=== PATIENT | female | born 1995 | race Caucasian/White ===

== ENCOUNTER 2017-11-10 11:02 | Inpatient (IN) | payer BC ==
[2017-11-10] MEDS ORDERED: SODIUM CHLORIDE 0.9% 1,000 ML IV ONE (12:05)
[2017-11-10] MEDS ORDERED: KETOROLAC 30 MG/ML 1 ML VIAL IVP STA (12:05)
[2017-11-10 12:10] LABS: Appearance,Urine Cloudy (Clear); Bacteria,Urine Occasional /hpf; Bilirubin,Urine Negative (Negative); Blood,Urine Small (Negative); Color,Urine Yellow; Glucose,Urine (UA) Negative (Negative); Ketones,Urine Negative (Negative); Leukocyte Esterase,Urine Small (Negative); Mucus,Urine Moderate /hpf; Nitrite,Urine Negative (Negative); PH, Urine 5.5 (5.0-8.0); Protein,Urine Negative (Negative); RBC,Urine 2 /hpf (0-5); Specific Gravity,Urine 1.019 (1.001-1.035); Squamous Epithelial Cell,Urine 12 /hpf (0-4); Urobilinogen,Urine <2.0 mg/dL (<2.0); WBC,Urine 6 /hpf (0-5)
--- NOTE | 2017-11-10 12:20 | ED ---
Extremity Problem HPI - General Chief complaint: Extremity Problem,Nontraumatic Stated complaint: Possible blood clot Time Seen by Provider: 11/10/17 11:30 Source: patient Mode of arrival: wheelchair Limitations: no limitations - History of Present Illness Initial comments: 22-year-old female patient presented to the emergency department today with complaints of bilateral calf pain. Patient states that pain started yesterday morning. She states that the pain is so severe that she is unable to ambulate without walking on her tiptoes. She states that her calves feel swollen and tight. She states that she did work out on Sunday at the gym however states that she is usually quite active with dance and yoga and did not do anything unusual. She denies any fever or chills with this. She states she has been taking Tylenol without relief. States that she did try to stretch yesterday however did not help. She states both calves hurt equally. She denies any history of similar symptoms. She does report that she did start a new control couple of months ago and did have a 30 pound weight gain. Patient denies any recent rash, shortness breath, chest pain, abdominal pain, nausea, vomiting, diarrhea, constipation, back pain, numbness, tingling, dizziness, weakness, hematuria, dysuria, urinary urgency, urinary frequency, headache, visual changes, or any other complaints. - Related Data Home Medications Medication Instructions Recorded Confirmed Enskyce 1 tab PO DAILY 11/10/17 11/10/17 Allergies Allergy/AdvReac Type Severity Reaction Status Date / Time ibuprofen AdvReac Nausea & Verified 11/10/17 16:28 Vomiting & Diarrhea Review of Systems ROS Statement: Those systems with pertinent positive or pertinent negative responses have been documented in the HPI. ROS Other: All systems not noted in ROS Statement are negative. Past Medical History Past Medical History: No Reported History History of Any Multi-Drug Resistant Organisms: None Reported Past Surgical History: Orthopedic Surgery Additional Past Surgical History / Comment(s): oral surgery Past Psychological History: No Psychological Hx Reported Smoking Status: Never smoker Past Alcohol Use History: None Reported Past Drug Use History: None Reported - Past Family History Father Family Medical History: Diabetes Mellitus Brother(s) Family Medical History: Diabetes Mellitus General Exam Limitations: no limitations General appearance: alert, in no apparent distress, other (This is a well- developed, well-nourished adult female patient in no acute distress. Vital signs upon presentation are temperature 98.1F, pulse 78, respirations 20, blood pressure 138/82, pulse ox 99% on room air.) Eye exam: Present: normal appearance, PERRL, EOMI. Absent: scleral icterus, conjunctival injection, periorbital swelling ENT exam: Present: normal exam, normal oropharynx, mucous membranes moist Respiratory exam: Present: normal lung sounds bilaterally. Absent: respiratory distress, wheezes, rales, rhonchi, stridor Cardiovascular Exam: Present: regular rate, normal rhythm, normal heart sounds. Absent: systolic murmur, diastolic murmur, rubs, gallop, clicks GI/Abdominal exam: Present: soft, normal bowel sounds. Absent: distended, tenderness, guarding, rebound, rigid Extremities exam: Present: normal inspection, full ROM, normal capillary refill , calf tenderness (Bilateral), other (No erythema, warmth, or lesion. Pedal and posttibial pulses are 2+ and equal bilaterally.). Absent: tenderness, pedal edema, joint swelling Neurological exam: Present: alert, oriented X3, CN II-XII intact Psychiatric exam: Present: normal affect, normal mood Skin exam: Present: warm, dry, intact, normal color. Absent: rash Course Vital Signs 11/10/17 11/10/17 11/10/17 11:17 14:31 16:08 Temperature 98.1 F Pulse Rate 78 76 86 Respiratory 20 18 18 Rate Blood Pressure 138/82 131/71 122/73 O2 Sat by Pulse 99 100 97 Oximetry 11/10/17 16:11 Temperature 98 F Pulse Rate Respiratory Rate Blood Pressure O2 Sat by Pulse Oximetry Medical Decision Making - Lab Data Result diagrams: 11/10/17 12:14 11/10/17 12:14 Lab Results 11/10/17 11/10/17 11/10/17 Range/Units 11:52 11:52 12:14 WBC 7.8 (3.8-10.6) k/uL RBC 4.77 (3.80-5.40) m/uL Hgb 13.2 (11.4-16.0) gm/dL Hct 40.7 (34.0-46.0) % MCV 85.3 (80.0-100.0) fL MCH 27.6 (25.0-35.0) pg MCHC 32.4 (31.0-37.0) g/dL RDW 13.1 (11.5-15.5) % Plt Count 245 (150-450) k/uL Neutrophils % 65 % Lymphocytes % 28 % Monocytes % 4 % Eosinophils % 2 % Basophils % 0 % Neutrophils # 5.0 (1.3-7.7) k/uL Lymphocytes # 2.1 (1.0-4.8) k/uL Monocytes # 0.3 (0-1.0) k/uL Eosinophils # 0.1 (0-0.7) k/uL Basophils # 0.0 (0-0.2) k/uL Sodium (137-145) mmol/L Potassium (3.5-5.1) mmol/L Chloride (98-107) mmol/L Carbon Dioxide (22-30) mmol/L Anion Gap mmol/L BUN (7-17) mg/dL Creatinine (0.52-1.04) mg/dL Est GFR (MDRD) Af Amer (>60 ml/min/1.73 sqM) Est GFR (MDRD) Non-Af (>60 ml/min/1.73 sqM) Glucose (74-99) mg/dL Calcium (8.4-10.2) mg/dL Total Bilirubin (0.2-1.3) mg/dL AST (14-36) U/L ALT (9-52) U/L Alkaline Phosphatase (38-126) U/L Creatine Kinase (30-135) U/L Total Protein (6.3-8.2) g/dL Albumin (3.5-5.0) g/dL Urine Color Yellow Urine Appearance Cloudy H (Clear) Urine pH 5.5 (5.0-8.0) Ur Specific [place] 1.019 (1.001-1.035) Urine Protein Negative (Negative) Urine Glucose (UA) Negative (Negative) Urine Ketones Negative (Negative) Urine Blood Small H (Negative) Urine Nitrite Negative (Negative) Urine Bilirubin Negative (Negative) Urine Urobilinogen <2.0 (<2.0) mg/dL Ur Leukocyte Esterase Small H (Negative) Urine RBC 2 (0-5) /hpf Urine WBC 6 H (0-5) /hpf Ur Squamous Epith Cells 12 H (0-4) /hpf Urine Bacteria Occasional H (None) /hpf Urine Mucus Moderate H (None) /hpf Urine Opiates Screen Not Detected (NotDetected) Ur Oxycodone Screen Not Detected (NotDetected) Urine Methadone Screen Not Detected (NotDetected) Ur Propoxyphene Screen Not Detected (NotDetected) Ur Barbiturates Screen Not Detected (NotDetected) U Tricyclic Antidepress Not Detected (NotDetected) Ur Phencyclidine Scrn Not Detected (NotDetected) Ur Amphetamines Screen Not Detected (NotDetected) U Methamphetamines Scrn Not Detected (NotDetected) U Benzodiazepines Scrn Not Detected (NotDetected) Urine Cocaine Screen Not Detected (NotDetected) U Marijuana (THC) Screen Not Detected (NotDetected) 11/10/17 Range/Units 12:14 WBC (3.8-10.6) k/uL RBC (3.80-5.40) m/uL Hgb (11.4-16.0) gm/dL Hct (34.0-46.0) % MCV (80.0-100.0) fL MCH (25.0-35.0) pg MCHC (31.0-37.0) g/dL RDW (11.5-15.5) % Plt Count (150-450) k/uL Neutrophils % % Lymphocytes % % Monocytes % % Eosinophils % % Basophils % % Neutrophils # (1.3-7.7) k/uL Lymphocytes # (1.0-4.8) k/uL Monocytes # (0-1.0) k/uL Eosinophils # (0-0.7) k/uL Basophils # (0-0.2) k/uL Sodium 144 (137-145) mmol/L Potassium 4.5 (3.5-5.1) mmol/L Chloride 109 H (98-107) mmol/L Carbon Dioxide 22 (22-30) mmol/L Anion Gap 13 mmol/L BUN 12 (7-17) mg/dL Creatinine 0.80 (0.52-1.04) mg/dL Est GFR (MDRD) Af Amer >60 (>60 ml/min/1.73 sqM) Est GFR (MDRD) Non-Af >60 (>60 ml/min/1.73 sqM) Glucose 75 (74-99) mg/dL Calcium 9.7 (8.4-10.2) mg/dL Total Bilirubin 0.7 (0.2-1.3) mg/dL AST 201 H (14-36) U/L ALT 63 H (9-52) U/L Alkaline Phosphatase 87 (38-126) U/L Creatine Kinase 34091 H (30-135) U/L Total Protein 7.9 (6.3-8.2) g/dL Albumin 4.4 (3.5-5.0) g/dL Urine Color Urine Appearance (Clear) Urine pH (5.0-8.0) Ur Specific [place] (1.001-1.035) Urine Protein (Negative) Urine Glucose (UA) (Negative) Urine Ketones (Negative) Urine Blood (Negative) Urine Nitrite (Negative) Urine Bilirubin (Negative) Urine Urobilinogen (<2.0) mg/dL Ur Leukocyte Esterase (Negative) Urine RBC (0-5) /hpf Urine WBC (0-5) /hpf Ur Squamous Epith Cells (0-4) /hpf Urine Bacteria (None) /hpf Urine Mucus (None) /hpf Urine Opiates Screen (NotDetected) Ur Oxycodone Screen (NotDetected) Urine Methadone Screen (NotDetected) Ur Propoxyphene Screen (NotDetected) Ur Barbiturates Screen (NotDetected) U Tricyclic Antidepress (NotDetected) Ur Phencyclidine Scrn (NotDetected) Ur Amphetamines Screen (NotDetected) U Methamphetamines Scrn (NotDetected) U Benzodiazepines Scrn (NotDetected) Urine Cocaine Screen (NotDetected) U Marijuana (THC) Screen (NotDetected) - Radiology Data Radiology results: report reviewed, image reviewed 22-year-old female patient percents to the emergency department today with complaints of bilateral calf pain and tenderness. Physical examination did reveal some mild swelling to the bilateral calves with tenderness of both areas. Labs reviewed and did reveal a creatine kinase of 10,103. AST was elevated at 201 and ALT was elevated at 63. Drug screen was negative. Patient will be admitted for rhabdomyolysis. She was started on D5 the tub U with 3 A of bicarbonate at 200 per hour. Patient was informed of all results and agrees with this plan. Disposition Clinical Impression: Rhabdomyolysis Disposition: ADMITTED IP TO THIS [facility] Condition: Serious Decision to Admit Reason: Admit from EC Decision Date: 11/10/17 Decision Time: 15:24
[2017-11-10 12:26] LABS: Basophils % (A) 0 %; Eosinophils # (A) 0.1 k/uL (0-0.7); Eosinophils % (A) 2 %; HCT 40.7 % (34.0-46.0); HGB 13.2 gm/dL (11.4-16.0); Lymphocytes # (A) 2.1 k/uL (1.0-4.8); Lymphocytes % (A) 28 %; MCH 27.6 pg (25.0-35.0); MCHC 32.4 g/dL (31.0-37.0); MCV 85.3 fL (80.0-100.0); Mean Platelet Volume 6.9; Monocytes # (A) 0.3 k/uL (0-1.0); Monocytes % (A) 4 %; Neutrophils % (A) 65 %; Platelet Count 245 k/uL (150-450); RBC 4.77 m/uL (3.80-5.40); RDW 13.1 % (11.5-15.5); WBC 7.8 k/uL (3.8-10.6)
[2017-11-10 12:39] LABS: ALT 63 U/L (9-52); AST 201 U/L (14-36); Albumin 4.4 g/dL (3.5-5.0); Alkaline Phosphatase 87 U/L (38-126); Anion Gap 13 mmol/L; Blood Urea Nitrogen 12 mg/dL (7-17); Calcium 9.7 mg/dL (8.4-10.2); Carbon Dioxide 22 mmol/L (22-30); Chloride 109 mmol/L (98-107); Glucose 75 mg/dL (74-99); Potassium 4.5 mmol/L (3.5-5.1); Sodium 144 mmol/L (137-145); Total Bilirubin 0.7 mg/dL (0.2-1.3); Total Protein 7.9 g/dL (6.3-8.2)
[2017-11-10 13:02] LABS: Creatine Kinase 10103 U/L (30-135)
[2017-11-10] MEDS ORDERED: DEXTROSE 5% IN WATER 1,000 ML with SODIUM BICARB (1 MEQ/ML) 150 ML IV ONE (13:42)
[2017-11-10 14:06] LABS: Amphetamine Screen,Urine Not Detected (NotDetected); Barbiturate Screen,Urine Not Detected (NotDetected); Benzodiazepines Screen,Urine Not Detected (NotDetected); Cocaine Screen,Urine Not Detected (NotDetected); Methadone Screen, Urine Not Detected (NotDetected); Opiate Screen,Urine Not Detected (NotDetected); Oxycodone Screen, Urine Not Detected (NotDetected); Phencyclidine Screen,Urine Not Detected (NotDetected); Tricyclic Antidepressant,Urine Not Detected (NotDetected); Urn Cannabinoid Scrn Not Detected (NotDetected)
[2017-11-10] MEDS ORDERED: HYDROmorphone 0.5 MG/0.5 ML SYRINGE IVP PRN (15:21)
[2017-11-10] MEDS ORDERED: NALOXONE 0.4 MG/ML 1 ML VIAL IV PRN (15:21)
[2017-11-10] MEDS ORDERED: ONDANSETRON 4 MG/2 ML VIAL IVP PRN (15:21)
[2017-11-10 16:40] VITALS: BMI 33.4
[2017-11-10] MEDS: SODIUM CHLORIDE 0.9% 1,000 ML IV SCH (21:09)
--- NOTE | 2017-11-10 21:27 | P.HPIM ---
History of Present Illness H&P Date: 11/10/17 Chief Complaint: Bilateral lower extremity pain HISTORY OF PRESENT ILLNESS: 21-year-old female patient of Dr. Negro Hoffman with no medical chronic medical conditions presented to the emergency department with complaints of bilateral calf pain. Pain began yesterday morning and it so severe that she is unable to ambulate without walking on her tiptoes her calves and feet are swollen and tight. Patient worked out last on Sunday at the gym, has a very active lifestyle with dancing yoga states she did not do anything unusual. Has taken Tylenol with no relief. Attempted to stretch and this did not help. Patient has had a 30 pound weight gain due to a new control pill which was started a couple months ago. REVIEW OF SYSTEMS GEN.: [ Mildly anxious, 30 pound weight gain in the last 2 months] EYES: [None] HEENT: [None] NECK: [None] RESPIRATORY: [None] CARDIOVASCULAR: [None] GASTROINTESTINAL: [None] GENITOURINARY: [None] MUSCULOSKELETAL: [Bilateral lower extremity pain] LYMPHATICS: [None] HEMATOLOGICAL: [None] PSYCHIATRY: [None] NEUROLOGICAL: [None] PAST MEDICAL HISTORY Past medical history: Irritable bowel Past surgical history: Orthopedic surgery, oral surgery Past psychological history: SOCIAL HISTORY: Additional psychological/social history: None Smoking use history: Never Alcohol use history: Denies Drug use history: Denies Marital status: Single Living situation: Lives with [facility] 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 BMI noted] GENERAL: [Average built, sitting up, comfortable]. EYES: [Pupils equal. Conjunctiva kalina]l. HEENT: [External appearance of nose and ears normal, oral cavity grossly normal] . NECK: [JVD not raised; masses not palpable]. HEART: [First and second heart sounds are normal; no edema]. LUNGS:[ Respiratory rate normal; clear to auscultation]. ABDOMEN: [Soft, nontender, liver spleen not palpable, no masses palpable]. LYMPHATICS: [No lymph nodes palpable in the axilla and neck]. PSYCH: [Alert and oriented x3; mood and affect kalina]l. NEUROLOGICAL: [Cranial nerves grossly intact; no facial asymmetry, power and sensation grossly intact]. MUSCULOSKELETAL: Bilateral swelling to calf and feet tender to palpation. INVESTIGATIONS: LABS: AST 201, ALTs 63, creatinine kinase 10,103 ASSESSMENT: -Rhabdomyolysis likely induced by exercise, in a patient who is engaged in regular routine physical activity -Obesity body mass index 33.5 PLAN: Home medications reordered, IV fluids initiated, serial labs continue monitoring CPK. Plan of care discussed at the bedside with the patient and mom , they are in agreement we will follow closely. CUTLERY GRINDER STATEMENT: Patient was seen and examined by nurse practitioner Cherri Humphries and all elements of the case were discussed with attending Dr. Garcia. Past Medical History Past Medical History: No Reported History Additional Past Medical History / Comment(s): IRRITABLE BOWEL DISEASE History of Any Multi-Drug Resistant Organisms: None Reported Past Surgical History: Orthopedic Surgery Additional Past Surgical History / Comment(s): oral surgery Past Anesthesia/Blood Transfusion Reactions: No Reported Reaction Past Psychological History: No Psychological Hx Reported Smoking Status: Never smoker Past Alcohol Use History: None Reported Past Drug Use History: None Reported - Past Family History Father Family Medical History: Diabetes Mellitus Brother(s) Family Medical History: Diabetes Mellitus Medications and Allergies Home Medications Medication Instructions Recorded Confirmed Type Enskyce 1 tab PO DAILY 11/10/17 11/10/17 History Allergies Allergy/AdvReac Type Severity Reaction Status Date / Time ibuprofen AdvReac Nausea & Verified 11/10/17 16:28 Vomiting & Diarrhea Physical Exam Vitals: Vital Signs Temp Pulse Pulse Resp BP BP Pulse Ox 11/10/17 16:30 97.7 F 77 20 139/87 100 11/10/17 16:11 98 F 11/10/17 16:08 86 18 122/73 97 11/10/17 14:31 76 18 131/71 100 11/10/17 11:17 98.1 F 78 20 138/82 99 Intake and Output 11/10/17 11/10/17 11/10/17 06:59 14:59 22:59 Output Total 250 Balance -250 Output: Urine 250 Other: Voiding Method Toilet Weight 99.79 kg 99.79 kg Patient Weight 11/11/17 06:59 Weight 99.79 kg Results CBC & Chem 7: 11/10/17 12:14 11/10/17 12:14 Labs: Abnormal Lab Results - Last 24 Hours (Table) 11/10/17 11/10/17 Range/Units 11:52 12:14 Chloride 109 H (98-107) mmol/L AST 201 H (14-36) U/L ALT 63 H (9-52) U/L Creatine Kinase 33002 H (30-135) U/L Urine Appearance Cloudy H (Clear) Urine Blood Small H (Negative) Ur Leukocyte Esterase Small H (Negative) Urine WBC 6 H (0-5) /hpf Ur Squamous Epith Cells 12 H (0-4) /hpf Urine Bacteria Occasional H (None) /hpf Urine Mucus Moderate H (None) /hpf Thrombosis Risk Factor Assmnt - Choose All That Apply Any of the Below Risk Factors Present?: Yes Each Factor Represents 1 point: Obesity (BMI >25), Oral contraceptives or hormone replacement therapy Thrombosis Risk Factor Assessment Total Risk Factor Score: 2 Thrombosis Risk Factor Assessment Level: Low Risk
[2017-11-11] MEDS: SODIUM CHLORIDE 0.9% 1,000 ML IV SCH ×2 (01:57→06:49)
[2017-11-11 09:31] LABS: ALT 73 U/L (9-52); AST 241 U/L (14-36); Albumin 3.4 g/dL (3.5-5.0); Alkaline Phosphatase 69 U/L (38-126); Anion Gap 9 mmol/L; Blood Urea Nitrogen 8 mg/dL (7-17); Calcium 8.7 mg/dL (8.4-10.2); Carbon Dioxide 24 mmol/L (22-30); Chloride 111 mmol/L (98-107); Glucose 109 mg/dL (74-99); Potassium 3.9 mmol/L (3.5-5.1); Sodium 144 mmol/L (137-145); Total Bilirubin 0.3 mg/dL (0.2-1.3); Total Protein 6.3 g/dL (6.3-8.2)
[2017-11-11] MEDS: SODIUM BICARBONATE TAB 650 MG TAB PO SCH ×2 (13:49→19:26)
[2017-11-11] MEDS: LACTATED RINGERS 1,000 ML IV SCH ×3 (16:21→21:42)
--- NOTE | 2017-11-11 18:50 | P.PN ---
Progress Note - Text Progress Note Date: 11/11/17 DATE OF SERVICE: 11/11/2017: PRESENTING COMPLAINT: Bilateral lower extremity pain HISTORY OF PRESENT ILLNESS: 21-year-old female who presented with bilateral lower extremity calf pain that was so severe she was unable to ambulate without walking on her tiptoes and calves and feet are swollen tight. Diagnostics revealed CK over 10,000, patient admitted for rhabdomyolysis. INTERVAL HISTORY: 11/11/2017: Sitting up in the bed, appears reasonably comfortable. Continues to complain of bilateral lower extremity calf pain. States pain is present however feels and seems somewhat better. CK is elevated greater than 12,000. Liver function tests also elevated. IV fluids, serial labs continue. Tolerating her diet, ambulatory to and from the bathroom. Last BM prior to admission. REVIEW OF SYSTEMS: Done for constitutional ,cardiovascular, GI, pulmonary with relevant findings as above. CURRENT MEDICATIONS: Dilaudid, lactated Ringer's, Zofran, sodium bicarbonate tablets. PHYSICAL EXAM VITAL SIGNS: Temperature 98.3, pulse 81, respiratory rate 18, blood pressure 127/75, oxygen saturation 97% on room air. GENERAL APPEARANCE: Lying in bed, not in distress. HEENT: Normocephalic, Pupils equal. Conjunctiva normal. JVD not raised. Mass not palpable.: RESPIRATORY: Respiratory effort normal. Lungs clear to auscultation. CARDIOVASCULAR: First and second sounds normal. No edema. ABDOMEN: Soft. Liver and spleen not palpable. No tenderness. No mass palpable. PSYCHIATRY: Alert and oriented x3. Mood and affect normal. MUSCULOSKELETAL: Bilateral swelling to calves and feet, tenderness to palpation , compartments are soft INVESTIGATIONS: Chloride 111, AST 241, ALTs 73, CK 12,713 ASSESSMENT: -Rhabdomyolysis likely induced by exercise, in a patient who is engaged in regular routine physical activity, worsening -Elevated liver enzymes in a patient with rhabdomyolysis, worsening -Obesity body mass index 33.5 PLAN: Continue aggressive IV fluid resuscitation, serial labs, sodium bicarbonate tablets. Plan of care discussed at the bedside with patient and mother they're agreeable. We will continue to follow closely. GANG PUSHER statement: Patient was seen and examined by nurse practitioner Cherri Humphries and all elements of the case discussed with attending Dr. Garcia
[2017-11-11] MEDS ORDERED: NAPROXEN 250 MG TAB PO PRN (19:41)
--- NOTE | 2017-11-11 20:28 | PN ---
PROGRESS NOTE DATE OF SERVICE: 11/11/17. ATTENDING NOTE: Patient seen and examined by me. I discussed with nurse practitioner Yandel. The patient admitted with acute rhabdomyolysis on IV LR. Still having some calf pain. Patient did try to walk a bit yesterday. The mother at the bedside. PHYSICAL EXAMINATION: On examination, afebrile, pulse 81, respiratory 18, blood pressure 127/75, pulse ox 97% on room air. Lungs are clear. Cardiovascular 1st and 2nd sounds normal. Some tenderness in both the calves. INVESTIGATIONS: White count 3.9, AST 241, ALT 73, CPK 12,713. ASSESSMENT: 1. Acute rhabdomyolysis, due to physical activity worsening. 2. Elevated liver enzymes could be from fatty liver, could be from side effect of control pill. PLAN: I had a lengthy talk with the patient and the mother. Probably the CPK is lagging behind. We will continue the patient at 200 mL of LR. Sodium bicarb tabs will be continued. Given the increased liver enzymes, we will do a liver ultrasound and get a Gastroenterology opinion. Told the patient to restrict her activity a little bit given that may diffuse more breakdown of muscles. Also we will order a bilateral lower extremity Doppler ultrasound to rule out DVT. MMODL / IJN: [id number] /
--- NOTE | 2017-11-11 21:10 | HP ---
HISTORY AND PHYSICAL DATE OF ADMISSION: 11/10/17 DATE OF SERVICE: 11/10/17 ATTENDING NOTE: Patient seen and examined by me yesterday on 11/10/17. Discussed with nurse practitioner, Ms. Humphries. The patient presented with bilateral calf pain. The patient does regular yoga and also teaches dance. Nothing unusual she can remember except maybe she had decreased fluid intake. She had pain in both the calves, presented to the ER. CPK was found to be greatly elevated. PHYSICAL EXAMINATION: On exam, lungs are clear. Cardiovascular 1st and 2nd sounds normal. The patient is rather comfortable. Some bilateral calf tenderness. Patient muscles well-developed. Mother says she has always been very active. INVESTIGATIONS: Potassium 4.5. CPK was 10,103. ASSESSMENT: Acute rhabdomyolysis from increased muscular activity. Patient has good muscle mass. The patient denies any recreational drugs, alcohol, stroke or too much for cold exposure. The patient will be started on IV fluids 200 mL an hour. We will also give some bicarbonate. Care was discussed at length with the mother at the bedside. The patient does take control pills over 2 months, but also been taking a control pill. Copy to Dr. Hoffman. RONIL / KEVINN: [id number] /
[2017-11-11] MEDS: ENOXAPARIN 40 MG/0.4 ML SYRINGE SQ SCH (21:24)
[2017-11-12] MEDS: SODIUM BICARBONATE TAB 650 MG TAB PO SCH ×5 (02:18→21:04)
[2017-11-12] MEDS: LACTATED RINGERS 1,000 ML IV SCH ×8 (02:18→21:05)
[2017-11-12 06:46] LABS: ALT 89 U/L (9-52); AST 271 U/L (14-36); Albumin 3.3 g/dL (3.5-5.0); Alkaline Phosphatase 62 U/L (38-126); Anion Gap 7 mmol/L; Blood Urea Nitrogen 7 mg/dL (7-17); Calcium 9.2 mg/dL (8.4-10.2); Carbon Dioxide 27 mmol/L (22-30); Chloride 107 mmol/L (98-107); Glucose 87 mg/dL (74-99); Potassium 4.3 mmol/L (3.5-5.1); Sodium 141 mmol/L (137-145); Total Bilirubin 0.4 mg/dL (0.2-1.3); Total Protein 6.1 g/dL (6.3-8.2)
--- NOTE | 2017-11-12 09:20 | US ---
EXAMINATION TYPE: US abdomen limited DATE OF EXAM: 11/12/2017 COMPARISON: NONE CLINICAL HISTORY: elevated liver enzymes. Dancer, calf pain, no symptoms EXAM MEASUREMENTS: Liver Length: 18.7 cm Gallbladder Wall: 0.1 cm CBD: 0.6 cm Right Kidney: 11.6 x 4.0 x 4.8 cm Pancreas: limited views due to bowel gas Liver: slightly enlarged, limited views appear wnl Gallbladder: wnl Evidence for sonographic Malave's sign: no CBD: wnl Right Kidney: wnl IMPRESSION: Liver appears to be enlarged measuring 18.7 cm correlate for hepatomegaly.
--- NOTE | 2017-11-12 09:21 | US ---
EXAMINATION TYPE: US venous doppler duplex LE DATE OF EXAM: 11/12/2017 8:43 AM COMPARISON: NONE CLINICAL HISTORY: r/o DVT. calf pain SIDE PERFORMED: Bilateral TECHNIQUE: The lower extremity deep venous system is examined utilizing real time linear array sonog gian with graded compression, doppler sonography and color-flow sonography. VESSELS IMAGED: External Iliac Vein (EIV) Common Femoral Vein Deep Femoral Vein Greater Saphenous Vein * Femoral Vein Popliteal Vein Small Saphenous Vein * Proximal Calf Veins (* superficial vessels) Right Leg: Appears negative for DVT Left Leg: Appears negative for DVT IMPRESSION: 1. No diagnostic evidence of DVT.
--- NOTE | 2017-11-12 17:50 | PN ---
PROGRESS NOTE DATE OF SERVICE: 11/12/17. ATTENDING NOTE: The patient seen and examined by me. I discussed with nurse practitioner, Ms. Hartmannnevaehconnor. The patient's calf pain is better. Getting IV fluids. Tolerating a diet. PHYSICAL EXAMINATION: On examination, afebrile, pulse 65, respiratory rate 20, blood pressure 130/79. LUNGS: Clear. Cardiovascular 1st and second sounds normal. Minimal cough, tenderness. INVESTIGATIONS: Potassium 4.3, AST 271, ALT 89. CPK 10,908. ASSESSMENT: 1. Acute rhabdomyolysis due to excessive physical activity and dehydration, slow to respond. 2. Acute hepatic injury, likely from underlying rhabdomyolysis. 3. Hepatomegaly for further outpatient workup. 4. Hypoalbuminemia, mild as an acute phase reactant. PLAN: Discussed with Dr. Kt Hughes. She will see the patient as outpatient, feels the liver injury is from acute rhabdomyolysis which happens. Will increase IV fluids to IV fluids to 225 mL an hour. Care was discussed with the patient and mother. Follow. MMODL / IJN: [id number] /
--- NOTE | 2017-11-12 17:57 | P.PN ---
Progress Note - Text Progress Note Date: 11/12/17 DATE OF SERVICE: 11/12/2017: PRESENTING COMPLAINT: Bilateral lower extremity pain HISTORY OF PRESENT ILLNESS: 21-year-old female who presented with bilateral lower extremity calf pain that was so severe she was unable to ambulate without walking on her tiptoes and calves and feet are swollen tight. Diagnostics revealed CK over 10,000, patient admitted for rhabdomyolysis. INTERVAL HISTORY: 11/12/2017: Sitting up in the bed, appears reasonably comfortable. Has bilateral lower extremity calf pain although improved since admission. Is able to ambulate to and from the bathroom however still is on her tiptoes a bit. CK remains elevated. Liver function tests also remain elevated. GI consulted for further evaluation. Tolerating her diet in between 50 and 75% of each meal, last BM . 11/11/2017: Sitting up in the bed, appears reasonably comfortable. Continues to complain of bilateral lower extremity calf pain. States pain is present however feels and seems somewhat better. CK is elevated greater than 12,000. Liver function tests also elevated. IV fluids, serial labs continue. Tolerating her diet, ambulatory to and from the bathroom. Last BM prior to admission. REVIEW OF SYSTEMS: Done for constitutional ,cardiovascular, GI, pulmonary with relevant findings as above. CURRENT MEDICATIONS: Dilaudid, lactated Ringer's, Zofran, sodium bicarbonate tablets. PHYSICAL EXAM VITAL SIGNS: Temperature 97.4, pulse 70, respiratory rate 20, blood pressure 144/84, oxygen saturation 97% GENERAL APPEARANCE: Sitting up in bed, not in distress. HEENT: Normocephalic, Pupils equal. Conjunctiva normal. JVD not raised. Mass not palpable.: RESPIRATORY: Respiratory effort normal. Lungs clear to auscultation. CARDIOVASCULAR: First and second sounds normal. No edema. ABDOMEN: Soft. Liver and spleen not palpable. No tenderness. No mass palpable. PSYCHIATRY: Alert and oriented x3. Mood and affect normal. MUSCULOSKELETAL: Bilateral swelling to calves and feet, tenderness to palpation , compartments are soft INVESTIGATIONS: AST 271, ALTs 89, creatinine kinase 10,908 ASSESSMENT: -Acute Rhabdomyolysis likely induced by exercise, in a patient who is engaged in regular routine physical activity, improving -Elevated liver enzymes in a patient with rhabdomyolysis, improving -Hepatomegaly per ultrasound examination likely due to rhabdomyolysis -Obesity body mass index 33.5 PLAN: Continue aggressive IV fluid resuscitation, serial labs, sodium bicarbonate tablets. Plan of care discussed at the bedside with patient and mother they're agreeable. We will continue to follow closely. PAYROLL MANAGER statement: Patient was seen and examined by nurse practitioner Cherri Humphries and all elements of the case discussed with attending Dr. Garcia
[2017-11-12] MEDS: ENOXAPARIN 40 MG/0.4 ML SYRINGE SQ SCH (21:04)
--- NOTE | 2017-11-12 22:35 | CONS ---
CONSULTATION DATE OF SERVICE: 11/12/17. REASON FOR CONSULTATION: Elevated LFTs. HISTORY OF PRESENT ILLNESS: The patient is a 22-year-old pleasant white female was admitted to hospital with severe bilateral calf pain following her regular exercise 2 days ago. The pain was so intense that she was not able to walk well. [facility] and then was advised to go to the emergency room. In the ER, she was noted to have extremely elevated CPK consistent with acute rhabdomyolysis. Hence she was admitted to the hospital. Currently undergoing aggressive IV hydration and she is feeling a little bit better today. We were consulted because of elevated LFTs since being in the hospital. She was noted to have elevated ALT and AST in the range of 200s. The patient has no prior history of chronic liver disease. No history of alcohol abuse. No history of jaundice or hepatitis in the past. No history of . PAST MEDICAL HISTORY: Past medical history is unremarkable. MEDICATIONS: At home, control pills that she started about 2 months ago. PAST SOCIAL HISTORY: Unremarkable social history. No smoking. No alcohol use. FAMILY HISTORY: Father has diabetes. Brother has diabetes. REVIEW OF SYSTEMS: Cardiopulmonary: No chest pain, shortness of breath. Genitourinary: No dysuria or hematuria. Musculoskeletal: Unremarkable other than bilateral calf pain. Neurology unremarkable. Psychiatric unremarkable. ENT vision unremarkable. Constitutional: No recent weight loss. No fevers, chills or night sweats. EXAMINATION: She appears comfortable. No apparent distress. VITAL SIGNS: Stable. Blood pressure is 135/78, pulse is 60, temperature 98.4. HEENT examination unremarkable. Conjunctivae pink. Sclerae anicteric. Oral cavity no lesions. Neck no jugular venous distention or lymph node enlargement. Lungs clear to auscultation. HEART: Regular rate and rhythm. ABDOMEN: Soft. It was nontender. bowel sounds are positive. Extremities no pedal edema. Skin no rashes. NEUROLOGIC: Alert and oriented times three. No focal deficits. LABORATORY DATA: From November 10, AST was 201, ALT 63. Today AST is 271, ALT is 89. CPK was 10,000 and today it is the same at 10,908. The T-bilirubin and alkaline phosphatase are within normal limits. Ultrasound of the liver did show evidence of hepatomegaly but otherwise it was unremarkable. IMPRESSION: This lady was admitted to hospital with acute rhabdomyolysis with elevated CPK levels and presently undergoing aggressive IV hydration. She is also noted to have mild elevations of the serum transaminases and this clinical picture is often seen in patients with acute rhabdomyolysis because part of the liver enzymes, especially AST has muscle origin too. Part of mild elevation of serum transaminases could be explained on the basis of hypoperfusion related to intravascular depletion from severe acute rhabdomyolysis. In either event, she does not have a history of chronic underlying liver disease and hence at this time, we can discontinue the conservative approach and monitor the labs on a daily basis. No need for any workup for chronic liver disease at this time, if serum transaminases did not resolve completely in the next 2 or 3 weeks, we will initiate further workup. For now, I assured the patient that we will continue to monitor them closely and repeat LFTs in the morning. Thank you for this consultation. NATALI / CEZAR: [id number] /
[2017-11-13] MEDS: LACTATED RINGERS 1,000 ML IV SCH ×5 (01:26→18:44)
[2017-11-13 06:49] LABS: ALT 92 U/L (9-52); AST 216 U/L (14-36); Albumin 3.3 g/dL (3.5-5.0); Alkaline Phosphatase 67 U/L (38-126); Anion Gap 7 mmol/L; Blood Urea Nitrogen 8 mg/dL (7-17); Calcium 9.1 mg/dL (8.4-10.2); Carbon Dioxide 28 mmol/L (22-30); Chloride 104 mmol/L (98-107); Glucose 88 mg/dL (74-99); Potassium 4.1 mmol/L (3.5-5.1); Sodium 139 mmol/L (137-145); Total Bilirubin 0.3 mg/dL (0.2-1.3)
[2017-11-13 07:11] LABS: Creatine Kinase 6547 U/L (30-135)
[2017-11-13] MEDS: SODIUM BICARBONATE TAB 650 MG TAB PO SCH ×4 (10:16→21:04)
--- NOTE | 2017-11-13 10:41 | P.PN ---
Subjective Progress Note Date: 11/13/17 Principal diagnosis: Rhabdomyolysis elevated liver enzymes 22-year-old female admitted with severe bilateral calf pain following her regular exercise regimen 3 days ago with subsequent development of elevated liver enzymes and CPK consistent with acute rhabdomyolysis. Presently feels well. Liver enzymes improving. AST 216. ALT 92. Alkaline phosphatase 67. Total bilirubin 0.3. Creatinine kinase improved 6547. Afebrile. Tolerating diet. Ultrasound yesterday reported hepatomegaly 18.7 cm. CBD 0.6 cm. No mentioning of stones. Objective - Vital Signs Vital signs: Vital Signs Temp 97.5 F L 11/13/17 08:15 Pulse 70 11/13/17 08:15 Resp 21 11/13/17 08:15 BP 123/78 11/13/17 08:15 Pulse Ox 95 11/13/17 08:15 Intake & Output 11/12/17 11/13/17 11/13/17 18:59 06:59 18:59 Intake Total 200 Output Total 2600 1200 Balance -2400 -1200 Intake: Oral 200 Output: Urine 2600 1200 Other: Voiding Method Toilet Toilet - Exam General appearance: The patient is alert, oriented, in no acute distress. HET: Head is normocephalic and atraumatic. Pupils are equal and reactive. Oropharynx is clear without lesions. Neck: Supple without lymphadenopathy. Trachea midline. Heart: S1 S2. Regular rate and rhythm. Lungs: No crackles or wheezes are heard. Abdomen: Soft, nontender, nondistended with bowel sounds. No peritoneal signs. No palpable organomegaly or masses. Extremities: Normal skin color and turgor. No cyanosis, rash, ulceration, clubbing, or edema. Radial and pedal pulses are 2/4 bilaterally. Neurological: No focal deficits. Strength and sensation are grossly intact. - Labs CBC & Chem 7: 11/10/17 12:14 11/13/17 06:02 Labs: Abnormal Lab Results - Last 24 Hours (Table) 11/13/17 Range/Units 06:02 AST 216 H (14-36) U/L ALT 92 H (9-52) U/L Creatine Kinase 6547 H (30-135) U/L Total Protein 6.0 L (6.3-8.2) g/dL Albumin 3.3 L (3.5-5.0) g/dL Assessment and Plan (1) Elevated liver enzymes Narrative/Plan: Secondary to rhabdomyolysis Current Visit: Yes Status: Acute Code(s): R74.8 - ABNORMAL LEVELS OF OTHER SERUM ENZYMES SNOMED Code(s): 559384313 (2) Hepatomegaly Current Visit: Yes Status: Acute Code(s): R16.0 - HEPATOMEGALY, NOT ELSEWHERE CLASSIFIED SNOMED Code(s): 31105963 (3) Rhabdomyolysis Current Visit: Yes Status: Acute Code(s): M62.82 - RHABDOMYOLYSIS SNOMED Code(s): 432529960 (4) Obesity (BMI 30.0-34.9) Current Visit: Yes Status: Chronic Code(s): E66.9 - OBESITY, UNSPECIFIED SNOMED Code(s): 351456953 Plan: 1. Supportive measures. Discharge per medicine. Return to GI office in 3-4 weeks for reevaluation. Assessment and plan of care discussed with Dr. Hughes
--- NOTE | 2017-11-13 18:03 | P.PN ---
Progress Note - Text Progress Note Date: 11/13/17 DATE OF SERVICE: 11/13/2017: PRESENTING COMPLAINT: Bilateral lower extremity pain HISTORY OF PRESENT ILLNESS: 21-year-old female who presented with bilateral lower extremity calf pain that was so severe she was unable to ambulate without walking on her tiptoes and calves and feet are swollen tight. Diagnostics revealed CK over 10,000, patient admitted for rhabdomyolysis. INTERVAL HISTORY: 11/13/2017: Sitting up in bed is comfortable. Bilateral lower extremity calf pain continues but improving. Able to ambulate to and from the bathroom left calf continues to be a bit more painful. CK remains elevated but improving.liver enzymes continue to be elevated but improving as well. Tolerating her diet, ambulatory in the room to and from the bathroom, last BM 11/12/2017. 11/12/2017: Sitting up in the bed, appears reasonably comfortable. Has bilateral lower extremity calf pain although improved since admission. Is able to ambulate to and from the bathroom however still is on her tiptoes a bit. CK remains elevated. Liver function tests also remain elevated. GI consulted for further evaluation. Tolerating her diet in between 50 and 75% of each meal, last BM . 11/11/2017: Sitting up in the bed, appears reasonably comfortable. Continues to complain of bilateral lower extremity calf pain. States pain is present however feels and seems somewhat better. CK is elevated greater than 12,000. Liver function tests also elevated. IV fluids, serial labs continue. Tolerating her diet, ambulatory to and from the bathroom. Last BM prior to admission. REVIEW OF SYSTEMS: Done for constitutional ,cardiovascular, GI, pulmonary with relevant findings as above. CURRENT MEDICATIONS: Lovenox, lactated Ringer's, Zofran, Naprosyn sodium bicarbonate tablets. PHYSICAL EXAM VITAL SIGNS: Temperature 97.5, pulse 70, respiratory rate 21, blood pressure 123/78, oxygen saturation 95% on room air. GENERAL APPEARANCE: Sitting up in bed, not in distress. HENT: Normocephalic, JVD not raised. Mass not palpable. EYES:Pupils equal. Conjunctiva normal. RESPIRATORY: Respiratory effort normal. Lungs clear to auscultation. CARDIOVASCULAR: First and second sounds normal. No edema. ABDOMEN: Soft. Liver and spleen not palpable. No tenderness. No mass palpable. PSYCHIATRY: Alert and oriented x3. Mood and affect normal. MUSCULOSKELETAL: Bilateral swelling to calves and feet, tenderness to palpation , compartments are soft INVESTIGATIONS: AST 216, ALTs 92, creatinine kinase 6547, albumin 3.3 ASSESSMENT: -Acute Rhabdomyolysis likely induced by exercise, in a patient who is engaged in regular routine physical activity, improving -Elevated liver enzymes in a patient with rhabdomyolysis, improving -Hepatomegaly per ultrasound examination likely due to rhabdomyolysis -Obesity body mass index 33.5 PLAN: Continue aggressive IV fluid resuscitation, serial labs, sodium bicarbonate tablets. Lovenox for DVT prophylaxis. Plan of care discussed at the bedside with patient she is agreeable. We will continue to follow closely. PATHOLOGY LAB TECHNICIAN statement: Patient was seen and examined by nurse practitioner Cherri Humphries and all elements of the case discussed with attending Dr. Garcia
[2017-11-13] MEDS: ENOXAPARIN 40 MG/0.4 ML SYRINGE SQ SCH (21:03)
--- NOTE | 2017-11-13 21:56 | PN ---
PROGRESS NOTE DATE OF SERVICE: 11/13/17 ATTENDING NOTE: Patient seen and examined by me. I discussed with nurse practitioner Ms. Humphries. The patient is feeling better. Calf pain is improved. Getting IV fluids. PHYSICAL EXAMINATION: Temperature 98, pulse 60, respiratory 18, blood pressure 106/72, pulse ox 96% on room air. Lungs are clear. Cardiovascular 1st and 2nd sounds normal. No calf tenderness. INVESTIGATIONS: CPK 6547, AST 216. ASSESSMENT: 1. Acute severe rhabdomyolysis, exercise improving slowly. 2. Elevated liver enzymes secondary to rhabdomyolysis. 3. Hepatomegaly to be further worked up as an outpatient by Gastroenterology. Care was discussed with the patient. Follow. MMODL / IJN: [id number] /
[2017-11-14] MEDS: LACTATED RINGERS 1,000 ML IV SCH (06:26)
[2017-11-14 06:42] LABS: ALT 101 U/L (9-52); AST 170 U/L (14-36); Albumin 3.5 g/dL (3.5-5.0); Alkaline Phosphatase 66 U/L (38-126); Anion Gap 10 mmol/L; Blood Urea Nitrogen 10 mg/dL (7-17); Calcium 9.4 mg/dL (8.4-10.2); Carbon Dioxide 26 mmol/L (22-30); Chloride 104 mmol/L (98-107); Glucose 84 mg/dL (74-99); Sodium 140 mmol/L (137-145); Total Bilirubin 0.5 mg/dL (0.2-1.3); Total Protein 6.5 g/dL (6.3-8.2)
[2017-11-14 07:11] LABS: Creatine Kinase 2920 U/L (30-135)
[2017-11-14] MEDS: SODIUM BICARBONATE TAB 650 MG TAB PO SCH ×3 (08:58→18:21)
[2017-11-14] MEDS ORDERED: ACETAMINOPHEN TAB 325 MG TAB PO PRN (10:20)
--- NOTE | 2017-11-14 13:01 | DS ---
DISCHARGE SUMMARY DATE OF ADMISSION: 11/10/2017 DATE OF DISCHARGE: 11/14/2017 FINAL DIAGNOSES: 1. Acute severe rhabdomyolysis from excessive muscular activity. 2. Acute hepatitis likely secondary to rhabdomyolysis. 3. Hepatomegaly cause unknown. 4. Obesity, body mass index of 33.5. 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 Found to be in acute rhabdomyolysis. CPK was up to 12,000. Initially did drop to 2,900 today. Calf pain greatly improved. These labs are from this morning. Patient will be hydrated until this evening and let her go. On examination, normal calf tenderness. Patient did have a slightly bump in the LFTs, did discuss with Dr. Lazara Hughes, felt to be probably from rhabdomyolysis. AST was coming down from 201, did come down to 170. Liver ultrasound showed slight hepatomegaly. Patient will follow up with Dr. Hughes in the office. Patient is not to return to work until next Sunday. Follow up with Dr. Hoffman next week. Follow up with Dr. Lazara Hughes on 12/03/2017. CMP in 1 week. Creatine kinase in 3 days. Activity limited. The patient get back to work. Discussion and discharge planning more than 35 minutes. MMODL / IJN: [id number] /
[2017-11-14 13:54] VITALS: BP 122/70; PULSE 76; RESP 16; TEMP 98.5
[2017-11-14] MEDS ORDERED: BENZOCAINE/MENTHOL LOZENG 1 EACH LOZENGE MUCOUS MEM PRN (14:22)
[2017-11-14] MEDS ORDERED: ACETAMINOPHEN TAB 500 MG TAB PO PRN (14:24)
--- NOTE | 2017-11-14 14:47 | XR ---
EXAMINATION TYPE: XR chest 2V DATE OF EXAM: 11/14/2017 COMPARISON: 08/29/1999 INDICATION: Rhabdomyolysis, chest tightness and cough TECHNIQUE: Frontal and lateral views of the chest are obtained. FINDINGS: The heart size is normal. The pulmonary vasculature is normal. The lungs are clear. IMPRESSION: 1. No acute pulmonary process.
== END 2017-11-14 18:23 | disposition home or self-care (01) | DRG 557 ==
LOC: EC 11:02 → 6PED 15:25
PROVIDERS: ADMIT Hospitalist; ATTEND Hospitalist
DX: M62.82 Rhabdomyolysis (principal); K72.00 Acute and subacute hepatic failure without coma; E66.9 Obesity, unspecified; E86.0 Dehydration; E88.09 Other disorders of plasma-protein metabolism, not elsewhere classified; K58.9 Irritable bowel syndrome, unspecified; Z83.3 Family history of diabetes mellitus; Z88.6 Allergy status to analgesic agent; Z79.899 Other long term (current) drug therapy
CPT/HCPCS: 36415; 71046; 76705; 80053; 80306; 81001; 82550; 85025; 87252; 87496; 87498; 87529; 87798; 93970; 96361; 96365; 96366; 96375; 99284

== ENCOUNTER 2019-10-16 18:06 | Emergency (ER) | payer BC ==
[2019-10-16 18:14] VITALS: RESP 16
--- NOTE | 2019-10-16 18:49 | ED ---
Female Urogenital HPI - General Source: patient Mode of arrival: ambulatory Limitations: no limitations - History of Present Illness Last Menstrual Period: 09/12/19 <Danielle Salas - Last Filed: 10/16/19 20:25> <Kimberli Herrera - Last Filed: 10/16/19 21:14> - General Stated complaint: Bleeding- - History of Present Illness Initial comments: 23-year-old female presenting today for chief complaint of vaginal bleeding present C. Patient states approximately a week ago she took a positive dependency test. Patient states she attempted to make an appointment with the primary care provider where she was told she needed make an appointment with an [facility] [employer]. Patient states she doesn't have established care. Patient is . Patient last menustral period was 09/12. Patient states approximately 1 horu prior to arrivla she began to have spotting of bright red blood and b/l lower pelvic cramping, denies severe abdominal pain, unilateral pain or history of ectopic . Patient admits to breast tenderness and nausea x2 weeks otherwise no complaints. On arrival patient is tearful but appears well nontox ic. (Danilele Salas) - Related Data Home Medications Medication Instructions Recorded Confirmed Ibuprofen [Advil] 400 mg PO Q8HR PRN 04/19/19 04/19/19 Previous Rx's Medication Instructions Recorded Cephalexin [Keflex] 500 mg PO BID #28 cap 10/16/19 Allergies Allergy/AdvReac Type Severity Reaction Status Date / Time ibuprofen AdvReac Nausea & Verified 10/16/19 18:14 Vomiting & Diarrhea Review of Systems ROS Other: All systems not noted in ROS Statement are negative. <Danielle Salas - Last Filed: 10/16/19 20:25> ROS Other: All systems not noted in ROS Statement are negative. <Kimberli Herrera - Last Filed: 10/16/19 21:14> ROS Statement: Those systems with pertinent positive or pertinent negative responses have been documented in the HPI. Past Medical History Past Medical History: No Reported History Additional Past Medical History / Comment(s): IRRITABLE BOWEL DISEASE, rhabdomyolosis History of Any Multi-Drug Resistant Organisms: None Reported Past Surgical History: Orthopedic Surgery Additional Past Surgical History / Comment(s): oral surgery Past Anesthesia/Blood Transfusion Reactions: No Reported Reaction Past Psychological History: No Psychological Hx Reported Smoking Status: Never smoker Past Alcohol Use History: None Reported Past Drug Use History: None Reported - Past Family History Father Family Medical History: Diabetes Mellitus Brother(s) Family Medical History: Diabetes Mellitus <Danielle Salas - Last Filed: 10/16/19 20:25> General Exam Limitations: no limitations <Danielle Salas - Last Filed: 10/16/19 20:25> - General Exam Comments Initial Comments: General: The patient is awake and alert, in no distress, and does not appear acutely ill. Eye: +3 mm pupils are equal, round and reactive to light, extra-ocular movements are intact. No nystagmus. There is normal conjunctiva bilaterally. No signs of icterus. Cardiovascular: There is a regular rate and rhythm. No murmur, rub or gallop is appreciated. Respiratory: Lungs are clear to auscultation, respirations are non-labored, breath sounds are equal. No wheezes, stridor, rales, or rhonchi. Gastrointestinal: Soft, non-distended, non-tender abdomen without masses or organomegaly noted. There is no rebound or guarding present. normal external genitalia examination patchy mucosa pink with rugated cervical os closed. Very scant amount of blood in the vaginal vault. No odor. No cervical motion or adnexal tenderness appreciated Musculoskeletal: Normal ROM, no tenderness. Strength 5/5. Sensation intact. Pulses equal bilaterally 2+. Neurological: A&O x 3. CN II-XII intact grossly, There are no obvious motor or sensory deficits. Coordination appears grossly intact. Speech is normal. Skin: Skin is warm and dry and no rashes or lesions are noted. Psychiatric: Cooperative, appropriate mood & affect, normal judgment. (Danielle Salas) Course Vital Signs 10/16/19 18:10 Temperature 98.6 F Pulse Rate 98 Respiratory 16 Rate Blood Pressure 143/76 O2 Sat by Pulse 100 Oximetry Medical Decision Making - Lab Data Result diagrams: 10/16/19 19:30 10/16/19 19:30 <Danielle Salas - Last Filed: 10/16/19 20:25> - Lab Data Result diagrams: 10/16/19 19:30 10/16/19 19:30 <Kimberli Herrera - Last Filed: 10/16/19 21:14> - Medical Decision Making 23-year-old female patient presented to the emergency department today for evaluation of vaginal bleeding. Patient did have positive test at home. Labs reviewed and revealed normal hemoglobin and hematocrit. HCG level was 13. Ultrasound showed no evidence for intrauterine or extrauterine pregnan cy however the left ovary was not visualized. Patient's ABO Rh was O-. I did discuss the need for RhoGAM with the patient, this has been ordered. She also had presence of bacteria and white blood cells in her urine, we did send this for culture, we will start antibiotic treatment. She is instructed to have repeat hCG level drawn in 2 days. She is instructed to follow-up with [facility] for recheck as soon as possible. Return parameters were discussed in detail. She verbalizes understanding and agrees with this plan. (Kimberli Herrera) - Lab Data Lab Results 10/16/19 10/16/19 10/16/19 Range/Units 19:30 19:30 19:30 WBC 11.0 H (3.8-10.6) k/uL RBC 4.38 (3.80-5.40) m/uL Hgb 12.7 (11.4-16.0) gm/dL Hct 38.6 (34.0-46.0) % MCV 88.3 (80.0-100.0) fL MCH 28.9 (25.0-35.0) pg MCHC 32.7 (31.0-37.0) g/dL RDW 13.4 (11.5-15.5) % Plt Count 280 (150-450) k/uL Neutrophils % 71 % Lymphocytes % 21 % Monocytes % 4 % Eosinophils % 2 % Basophils % 0 % Neutrophils # 7.8 H (1.3-7.7) k/uL Lymphocytes # 2.3 (1.0-4.8) k/uL Monocytes # 0.5 (0-1.0) k/uL Eosinophils # 0.3 (0-0.7) k/uL Basophils # 0.1 (0-0.2) k/uL Sodium 142 (137-145) mmol/L Potassium 3.5 (3.5-5.1) mmol/L Chloride 110 H (98-107) mmol/L Carbon Dioxide 24 (22-30) mmol/L Anion Gap 8 mmol/L BUN 16 (7-17) mg/dL Creatinine 0.76 (0.52-1.04) mg/dL Est GFR (CKD-EPI)AfAm >90 (>60 ml/min/1.73 sqM) Est GFR (CKD-EPI)NonAf >90 (>60 ml/min/1.73 sqM) Glucose 107 H (74-99) mg/dL Calcium 9.3 (8.4-10.2) mg/dL Total Bilirubin 0.7 (0.2-1.3) mg/dL AST 30 (14-36) U/L ALT 14 (4-34) U/L Alkaline Phosphatase 77 (38-126) U/L Total Protein 7.8 (6.3-8.2) g/dL Albumin 4.6 (3.5-5.0) g/dL HCG, Quant 13.2 mIU/mL Urine Color Urine Appearance (Clear) Urine pH (5.0-8.0) Ur Specific [place] (1.001-1.035) Urine Protein (Negative) Urine Glucose (UA) (Negative) Urine Ketones (Negative) Urine Blood (Negative) Urine Nitrite (Negative) Urine Bilirubin (Negative) Urine Urobilinogen (<2.0) mg/dL Ur Leukocyte Esterase (Negative) Urine RBC (0-5) /hpf Urine WBC (0-5) /hpf Ur Squamous Epith Cells (0-4) /hpf Urine Bacteria (None) /hpf Urine Mucus (None) /hpf Trichomonas Ag (Rapid) (Negative) Blood Type O Negative Blood Type Recheck No Previous Record Bld Type Recheck Status CABO Indicated Antibody Screen NEGATIVE Spec Expiration Date 10/19/2019232910/16/19 10/16/19 Range/Units 19:30 20:05 WBC (3.8-10.6) k/uL RBC (3.80-5.40) m/uL Hgb (11.4-16.0) gm/dL Hct (34.0-46.0) % MCV (80.0-100.0) fL MCH (25.0-35.0) pg MCHC (31.0-37.0) g/dL RDW (11.5-15.5) % Plt Count (150-450) k/uL Neutrophils % % Lymphocytes % % Monocytes % % Eosinophils % % Basophils % % Neutrophils # (1.3-7.7) k/uL Lymphocytes # (1.0-4.8) k/uL Monocytes # (0-1.0) k/uL Eosinophils # (0-0.7) k/uL Basophils # (0-0.2) k/uL Sodium (137-145) mmol/L Potassium (3.5-5.1) mmol/L Chloride (98-107) mmol/L Carbon Dioxide (22-30) mmol/L Anion Gap mmol/L BUN (7-17) mg/dL Creatinine (0.52-1.04) mg/dL Est GFR (CKD-EPI)AfAm (>60 ml/min/1.73 sqM) Est GFR (CKD-EPI)NonAf (>60 ml/min/1.73 sqM) Glucose (74-99) mg/dL Calcium (8.4-10.2) mg/dL Total Bilirubin (0.2-1.3) mg/dL AST (14-36) U/L ALT (4-34) U/L Alkaline Phosphatase (38-126) U/L Total Protein (6.3-8.2) g/dL Albumin (3.5-5.0) g/dL HCG, Quant mIU/mL Urine Color Yellow Urine Appearance Clear (Clear) Urine pH 6.0 (5.0-8.0) Ur Specific [place] 1.033 (1.001-1.035) Urine Protein Trace H (Negative) Urine Glucose (UA) Negative (Negative) Urine Ketones Trace H (Negative) Urine Blood Moderate H (Negative) Urine Nitrite Negative (Negative) Urine Bilirubin Negative (Negative) Urine Urobilinogen 2.0 (<2.0) mg/dL Ur Leukocyte Esterase Small H (Negative) Urine RBC >182 H (0-5) /hpf Urine WBC 19 H (0-5) /hpf Ur Squamous Epith Cells 2 (0-4) /hpf Urine Bacteria Rare H (None) /hpf Urine Mucus Few H (None) /hpf Trichomonas Ag (Rapid) Negative (Negative) Blood Type Blood Type Recheck Bld Type Recheck Status Antibody Screen Spec Expiration Date Disposition <Danielle Salas - Last Filed: 10/16/19 20:25> Is patient prescribed a controlled substance at d/c from ED?: No Time of Disposition: 21:11 <Den Herrerabar Dupree - Last Filed: 10/16/19 21:14> Clinical Impression: Vaginal bleeding during , Threatened Disposition: ADMITTED IP TO THIS HOSP Condition: Good Instructions (If sedation given, give patient instructions): Threatened Miscarriage (ED) Additional Instructions: Please use medication as discussed. Please follow-up with OBGYN in the next week, repeat US and get your blood drawn sunday for repeat HCG, send results to Dr. Hammer' office. Please return to emergency room if the symptoms increase or worsen or for any other concerns-pelvic pain/discomfort/heavy bleeding. Prescriptions: Cephalexin [Keflex] 500 mg PO BID #28 cap Referrals: Francisco Hoffman MD [Primary Care Provider] - 1-2 days Heather Sims DO [Doctor of Osteopathic Medicine] - 1-2 days Reji Felix MD [STAFF PHYSICIAN] - 1-2 days
--- NOTE | 2019-10-16 19:21 | US ---
EXAMINATION TYPE: Transabdominal DATE OF EXAM: 10/16/2019 7:07 PM COMPARISON: NONE CLINICAL HISTORY: pain. Pelvic pain x 2 hours. Vaginal bleeding x 1 hour. . EXAM PERFORMED: Transvaginal (TV) and Transabdominal (TA) EXAM MEASUREMENTS: GESTATIONAL AGE / DATING Physician Established: Not yet established. Dates by LMP: (4 weeks/6 days) EDC: 06/18/2020 Dates by First Scan: This is first scan. Dates by Current Scan for: No IUP seen at this time. MATERNAL ANATOMY Uterus: 6.6 x 3.9 x 3.0 cm. Anteverted. Endometrium measures 0.67 cm. Right Ovary: 2.0 x 1.5 x 1.3 cm. Limited, appears to be wnl. Left Ovary: Not visualized Post CDS / Adnexa: Appear to be wnl Presence of free fluid: Not seen Presence of corpus luteal cyst: No GESTATION / SURVEY IUP: No IUP seen at this time Date of LMP: 09/12/2019 Beta HcG (if available): Not available. IMPRESSION: Uterus is empty. No adnexal mass or free fluid. No sign of a gestational sac.
[2019-10-16 19:41] LABS: Basophils # (A) 0.1 k/uL (0-0.2); Basophils % (A) 0 %; Eosinophils # (A) 0.3 k/uL (0-0.7); Eosinophils % (A) 2 %; HCT 38.6 % (34.0-46.0); HGB 12.7 gm/dL (11.4-16.0); Lymphocytes # (A) 2.3 k/uL (1.0-4.8); Lymphocytes % (A) 21 %; MCH 28.9 pg (25.0-35.0); MCHC 32.7 g/dL (31.0-37.0); MCV 88.3 fL (80.0-100.0); Mean Platelet Volume 7.7; Monocytes # (A) 0.5 k/uL (0-1.0); Monocytes % (A) 4 %; Neutrophils # (A) 7.8 k/uL (1.3-7.7); Neutrophils % (A) 71 %; Platelet Count 280 k/uL (150-450); RBC 4.38 m/uL (3.80-5.40); RDW 13.4 % (11.5-15.5)
[2019-10-16 19:46] LABS: Appearance,Urine Clear (Clear); Bacteria,Urine Rare /hpf; Bilirubin,Urine Negative (Negative); Blood,Urine Moderate (Negative); Color,Urine Yellow; Glucose,Urine (UA) Negative (Negative); Ketones,Urine Trace (Negative); Leukocyte Esterase,Urine Small (Negative); Mucus,Urine Few /hpf; Nitrite,Urine Negative (Negative); Protein,Urine Trace (Negative); RBC,Urine >182 /hpf (0-5); Specific Gravity,Urine 1.033 (1.001-1.035); Squamous Epithelial Cell,Urine 2 /hpf (0-4); WBC,Urine 19 /hpf (0-5)
[2019-10-16 19:51] LABS: ALT 14 U/L (4-34); AST 30 U/L (14-36); African American GFR (CKD) >90 (>60 ml/min/1.73 sqM); Albumin 4.6 g/dL (3.5-5.0); Alkaline Phosphatase 77 U/L (38-126); Anion Gap 8 mmol/L; Blood Urea Nitrogen 16 mg/dL (7-17); Calcium 9.3 mg/dL (8.4-10.2); Carbon Dioxide 24 mmol/L (22-30); Chloride 110 mmol/L (98-107); Glucose 107 mg/dL (74-99); Non-African American GFR(CKD) >90 (>60 ml/min/1.73 sqM); Potassium 3.5 mmol/L (3.5-5.1); Sodium 142 mmol/L (137-145); Total Bilirubin 0.7 mg/dL (0.2-1.3); Total Protein 7.8 g/dL (6.3-8.2)
[2019-10-16 20:07] LABS: HCG,Quantitative Serum 13.2 mIU/mL
[2019-10-16] MEDS ORDERED: Rhogam IMMUNE GLOBULIN 1,500 UNIT/1 ML IM ONE (20:50)
[2019-10-16] MEDS ORDERED: CEPHALEXIN 500MG STARTER PACK 4 CAP BTL PO STA (20:51)
[2019-10-16 21:45] VITALS: BP 122/81; PULSE 86; TEMP 98
[2019-10-18 09:46] LABS: N. gonorrhoeae,PCR Negative (Neg,Equiv); Neisseria Source Vagina
[2019-10-18 09:47] LABS: C. trachomatis,PCR Negative (Neg,Equiv); Chlamydia trachomatis Source Vagina
== END 2019-10-16 21:50 | disposition other institution (70) ==
LOC: EC 18:06
DX: O20.0 Threatened abortion (principal); R82.998 Other abnormal findings in urine; Z88.6 Allergy status to analgesic agent; Z3A.00 Weeks of gestation of pregnancy not specified
CPT/HCPCS: 36415; 86900; 86901; 80053; 85025; 86850; 81001; 84702; 87808; 87491; 87591; 87070; 87086; 76801; 76817; 99285; 96372; J2791

== ENCOUNTER → 2019-10-18 | Outpatient (CLI) | payer BC | END | disposition home or self-care (01) | LOC: LABWHC1 10:02 | PROVIDERS: ATTEND Nurse Practitioner | DX: O26.859 Spotting complicating pregnancy, unspecified trimester (principal); Z3A.00 Weeks of gestation of pregnancy not specified | CPT/HCPCS: 36415; 84702 ==

== ENCOUNTER 2020-11-08 18:05 | Outpatient (CLI) | payer BC ==
[2020-11-08 19:00] VITALS: BP 124/72; PULSE 109; RESP 18; TEMP 98.4
--- NOTE | 2020-11-20 20:12 | P.MSEPDOC ---
Presenting Problems - Arrival Data Date of Arrival on Unit: 11/08/20 Time of Arrival on Unit: 18:05 Mode of Transport: Ambulatory - Complaint OB-Reason for Admission/Chief Complaint: Rule Out SROM Medical History - Information : 3 Para: 0 Term: 0 : 0 Abortions: Spontaneous or Elective: 2 Number of Living Children: 0 - Gestational Age Gestational Age by RIDDHI (wks/days): 36 Weeks and 5 Days Review of Systems - Review of Systems Constitutional: No problems Breast: No problems ENT: No problems Cardiovascular: No problems Respiratory: No problems Gastrointestinal: No problems Genitourinary: No problems Musculoskeletal: No problems Neurological: No problems Skin: No problems Vital Signs - Temperature Temperature: 98.4 F Temperature Source: Temporal Artery Scan - Pulse Right Pulse Rate: 109 Pulse Assessment Method: Automatic Cuff - Respirations Respiratory Rate: 18 Oxygen Delivery Method: Room Air O2 Sat by Pulse Oximetry: 97 - Blood Pressure Right Arm Blood Pressure: 124/72 Blood Pressure Mean: 89 Blood Pressure Source: Automatic Cuff Medical Screen Scoring (Pre) - Cervical Exam Dilation: Exam Deferred Effacement: Exam Deferred Membranes: Intact - Uterine Contractions Frequency: N/A Duration: N/A Intensity: N/A - Maternal Vital Signs Maternal Temperature: N/A Maternal Blood Pressure: N/A Signs of Preeclampsia: N/A Maternal Respirations: N/A - Maternal Trauma Maternal Trauma: N/A - Assessment - Baby A Baseline FHR: 140 Heart Rate - NICHD Category: Category I (Normal) = 0 NST: Reactive Position: N/A Station: N/A - Total Score - Baby A Total Score - Baby A: 0 - Total Score - Baby B Total Score - Baby B: 0 - Total Score - Baby C Total Score - Baby C: 0 - Level of Risk - Baby A Level of Risk - Baby A: Low (0-5) - Level of Risk - Baby B Level of Risk - Baby B: Low (0-5) - Level of Risk - Baby C Level of Risk - Baby C: Low (0-5) Physician Notification (Pre) - Physician Notified Physician Notified Date: 11/08/20 Physician Notified Time: 18:40 New Order Received: Yes - Notification Comment Comment: RN spoke with Dr. North regarding pt complaint of possible ROM. Amnisure was negative, cervix is closed and thick. No contractions noted on monitor or palpated. Pt not feeling strong contractions, only mild cramping intermittently. NST reactive. RN received orders for pt to DC home at this time. Disposition - Disposition OB Disposition: Discharge to home Discharge Date: 11/08/20 Discharge Time: 18:45 I agree with the RN Medical Screening Exam: Yes Case reviewed; plan agreed upon as documented in EMR&OBIX.: Yes Comments: I physically saw this patient in triage. We spoke about when to return to family , labor precautions. I reviewed the amniosure to make sure it was negative and her cervix closed. Diagnosis: FALSE LABOR BEFORE 37 COMPLETED WEEKS OF GEST, THIRD TRI
== END 2020-11-08 18:45 | disposition home or self-care (01) ==
LOC: FBPOP 18:05
PROVIDERS: ATTEND Obstetrics & Gynecology
DX: O47.03 False labor before 37 completed weeks of gestation, third trimester (principal); Z3A.36 36 weeks gestation of pregnancy
CPT/HCPCS: 59025; 84112; 99213

== ENCOUNTER 2020-12-05 16:10 | Inpatient (IN) | payer BC ==
[~2020-12-05 16:10] MED LIST: BUTORPHANOL 1 MG/ML 1 ML VIAL IV PRN; DINOPROSTONE 10 MG INSERT.ER VAGINAL ONE
[2020-12-06] MEDS ORDERED: CARBOPROST TROMETHAMINE 250 MCG/ML 1 ML AMP IM PRN (04:44)
[2020-12-06] MEDS ORDERED: TERBUTALINE 1 MG/ML VIAL SQ PRN (04:44)
[2020-12-06] MEDS ORDERED: METHYLERGONOVINE 0.2 MG/ML 1 ML AMP IM PRN (04:44)
[2020-12-06] MEDS ORDERED: OXYTOCIN 10 UNIT/ML 1 ML VIAL IM PRN (04:44)
[2020-12-06] MEDS ORDERED: LIDOCAINE 0.5% (PF) 5 MG/ML (50 ML SDV) SQ PRN (04:44)
[2020-12-06] MEDS ORDERED: AMPICILLIN 2,000 MG in SODIUM CHLORIDE 0.9% 100 ML IVPB ONE (05:00)
[2020-12-06] MEDS: OXYTOCIN 30 UNITS/500 ML NS 30 UNIT in SALINE 1 500ML.BAG IV SCH (06:12)
[2020-12-06] MEDS: LACTATED RINGERS 1,000 ML IV SCH (06:13)
[2020-12-06 06:20] LABS: Basophils % (A) 0 %; Eosinophils # (A) 0.1 k/uL (0-0.7); Eosinophils % (A) 1 %; HCT 39.4 % (34.0-46.0); HGB 13.4 gm/dL (11.4-16.0); Lymphocytes # (A) 2.5 k/uL (1.0-4.8); Lymphocytes % (A) 24 %; MCH 29.3 pg (25.0-35.0); MCV 86.1 fL (80.0-100.0); Mean Platelet Volume 9.8; Monocytes # (A) 0.6 k/uL (0-1.0); Monocytes % (A) 6 %; Neutrophils # (A) 6.8 k/uL (1.3-7.7); Neutrophils % (A) 67 %; Platelet Count 218 k/uL (150-450); RBC 4.57 m/uL (3.80-5.40); RDW 13.8 % (11.5-15.5); WBC 10.1 k/uL (3.8-10.6)
--- NOTE | 2020-12-06 08:01 | P.HPOB ---
History of Present Illness H&P Date: 12/05/20 Chief Complaint: induction of labor 25 year old presents at 40 weeks 4 days for two stage induction of labor. Her cervix is closed/50/-2. She is not jaimie. heart tones 130 with moderate variability and reactive. Review of Systems All systems: negative Constitutional: Denies chills, Denies fever Eyes: denies blurred vision, denies pain Ears, nose, mouth and throat: Denies headache, Denies sore throat Cardiovascular: Denies chest pain, Denies shortness of breath Respiratory: Denies cough Gastrointestinal: Denies abdominal pain, Denies diarrhea, Denies nausea, Denies vomiting Genitourinary: Denies dysuria, Denies hematuria Musculoskeletal: Denies myalgias Integumentary: Denies pruritus, Denies rash Neurological: Denies numbness, Denies weakness Psychiatric: Denies anxiety, Denies depression Endocrine: Denies fatigue, Denies weight change Past Medical History Past Medical History: No Reported History Additional Past Medical History / Comment(s): IRRITABLE BOWEL DISEASE, rhabdomyolosis. Obstetric history: two previous spontaneous abortions. This is her third . She has had care with me since the first trimester. Blood type O neg, Rub Imm, RPR Nr, Hep B neg, toxo neg. Was seen by MFM for history of rhabdomyolysis and ARMAAN+. Received Rhogam 09/10/20 History of Any Multi-Drug Resistant Organisms: None Reported Past Surgical History: Orthopedic Surgery Additional Past Surgical History / Comment(s): oral surgery, tumore removed from ankle Past Anesthesia/Blood Transfusion Reactions: No Reported Reaction Past Psychological History: No Psychological Hx Reported Smoking Status: Never smoker Past Alcohol Use History: None Reported Past Drug Use History: None Reported - Past Family History Father Family Medical History: Diabetes Mellitus, Myocardial Infarction ([place]) Brother(s) Family Medical History: Diabetes Mellitus Medications and Allergies Home Medications Medication Instructions Recorded Confirmed Type Pnv,Calcium 72/Iron/Folic Acid 1 tab PO DAILY 11/08/20 12/05/20 History [ Plus Tablet] Allergies Allergy/AdvReac Type Severity Reaction Status Date / Time ibuprofen AdvReac Nausea & Verified 12/05/20 16:28 Vomiting & Diarrhea Exam Osteopathic Statement: *. No significant issues noted on an osteopathic structural exam other than those noted in the History and Physical/Consult. Vital Signs Temp Pulse Resp BP Pulse Ox 12/05/20 16:26 97.6 F 85 18 131/82 98 Intake and Output 12/05/20 12/06/20 12/06/20 22:59 06:59 14:59 Other: # Voids 2 1 Weight 110.677 kg Heart: RRR Lungs: CTAB Abdomen: soft, gravid, nontender Extremeties: neg viviana's Results Result Diagrams: 12/06/20 05:45 Assessment and Plan (1) Encounter for induction of labor Current Visit: Yes Status: Acute Code(s): Z34.90 - ENCNTR FOR SUPRVSN OF NORMAL , UNSP, UNSP TRIMESTER SNOMED Code(s): 756530617 Plan: 1. induction of labor with cervidil tonight and then amniotomy and pitocin in t he morning.
--- NOTE | 2020-12-06 08:03 | P.PN ---
Progress Note - Text Progress Note Date: 12/06/20 S/P cervidil 40 weeks 5 days FHT: 135 with moderate variability and accels, no decels. reactive and category 1\ SVE: closed/60/-2 soft toco: irreg contractions Will continue with plan of pitocin induction of labor. Unable to preform amniotomy right now since cervix is still closed. Had a discussion with pt and to continue the plan and re-evaluate in 4-6 hours.
[2020-12-06] MEDS ORDERED: AMPICILLIN 1,000 MG in SODIUM CHLORIDE 0.9% 50 ML IVPB SCH (09:00)
[2020-12-06] MEDS ORDERED: DINOPROSTONE 10 MG INSERT.ER VAGINAL ONE (17:00)
[2020-12-06] MEDS ORDERED: ZOLPIDEM 5 MG TAB PO SCH (21:00)
[2020-12-07] MEDS: LACTATED RINGERS 1,000 ML IV SCH ×2 (05:58→15:15)
[2020-12-07] MEDS ORDERED: AMPICILLIN 2,000 MG in SODIUM CHLORIDE 0.9% 100 ML IVPB ONE (06:00)
[2020-12-07] MEDS: OXYTOCIN 30 UNITS/500 ML NS 30 UNIT in SALINE 1 500ML.BAG IV SCH (06:59)
--- NOTE | 2020-12-07 08:43 | P.PN ---
Progress Note - Text Progress Note Date: 12/07/20 Patient did not make much cervical change yesterday despite Pitocin augmentation. Her cervix still closed. I replaced another Cervidil last night and this morning her cervix is fingertip and 60% effaced, -2 station. She is jaimie irregularly and on Pitocin, rating the contractions a 3 out of 10. We'll continue Pitocin augmentation for induction of labor. The heart tones are category 1.
[2020-12-07] MEDS ORDERED: AMPICILLIN 1,000 MG in SODIUM CHLORIDE 0.9% 50 ML IVPB SCH (10:00)
[2020-12-07] MEDS ORDERED: LACTATED RINGERS 1,000 ML IV ONE (13:35)
[2020-12-07] MEDS ORDERED: CITRIC ACID-SODIUM CITRATE 15 ML CUP PO ONE (13:35)
[2020-12-07] MEDS ORDERED: MORPHINE SULFATE (PF) 0.3 MG/0.3 ML SYR ONE (17:09)
[2020-12-07] MEDS ORDERED: DEXAMETHASONE SOD PHOSPHATE 4 MG/ML 1 ML VIAL ONE (17:09)
[2020-12-07] MEDS ORDERED: KETOROLAC 15 MG/ML 1 ML VIAL ONE (17:09)
[2020-12-07] MEDS ORDERED: fentaNYL (PF) 50 MCG/ML 2 ML AMP ONE (17:09)
[2020-12-07] MEDS ORDERED: ONDANSETRON 4 MG/2 ML VIAL ONE (17:09)
[2020-12-07] MEDS ORDERED: OXYTOCIN 10 UNIT/ML 1 ML VIAL ONE (17:09)
[2020-12-07] MEDS ORDERED: ONDANSETRON 4 MG/2 ML VIAL IVP PRN (17:56)
[2020-12-07] MEDS ORDERED: METOCLOPRAMIDE 5 MG/ML 2 ML VIAL IVP PRN (17:56)
[2020-12-07] MEDS ORDERED: diphenhydrAMINE 25 MG CAP PO PRN (17:56)
[2020-12-07] MEDS ORDERED: diphenhydrAMINE 50 MG CAP PO PRN (17:56)
[2020-12-07] MEDS ORDERED: diphenhydrAMINE 50 MG/ML 1 ML VIAL IVP PRN ×2 (17:56)
[2020-12-07] MEDS ORDERED: LANOLIN CREAM 5 GM TUBE TOPICAL PRN (17:56)
[2020-12-07] MEDS ORDERED: NALOXONE 0.4 MG/ML 1 ML VIAL IV PRN (17:56)
[2020-12-07] MEDS ORDERED: ZOLPIDEM 5 MG TAB PO PRN (17:56)
[2020-12-07] MEDS ORDERED: OXYTOCIN 30 UNITS/500 ML NS 30 UNIT in SALINE 1 500ML.BAG IV SCH (18:00)
[2020-12-07] MEDS ORDERED: LACTATED RINGERS 1,000 ML IV SCH (18:00)
[2020-12-07] MEDS: SENNOSIDES-DOCUSATE SODIUM 1 EACH TAB PO SCH (21:15)
[2020-12-07] MEDS: KETOROLAC 15 MG/ML 1 ML VIAL IVP PRN (21:41)
[2020-12-08] MEDS ORDERED: Rhogam IMMUNE GLOBULIN 1,500 UNIT/1 ML IM ONE (03:50)
--- NOTE | 2020-12-08 06:26 | P.PN ---
Progress Note - Text Progress Note Date: 12/08/20 She is postop day 1 from primary with spinal preservative-free morphine. She did very well. She has minimal pruritus, she has minimal pain. She's been able to ambulate and has been able to micturate. She has no drowsiness. She will be using [id number] pain medication as prescribed by her surgeon. Please feel free reach out if you have any questions or concerns.
[2020-12-08] MEDS: SENNOSIDES-DOCUSATE SODIUM 1 EACH TAB PO SCH ×2 (07:44→21:50)
[2020-12-08 07:57] LABS: Basophils % (A) 0 %; Eosinophils # (A) 0.2 k/uL (0-0.7); Eosinophils % (A) 1 %; HCT 36.1 % (34.0-46.0); HGB 11.7 gm/dL (11.4-16.0); Lymphocytes # (A) 1.5 k/uL (1.0-4.8); Lymphocytes % (A) 10 %; MCH 28.1 pg (25.0-35.0); MCHC 32.5 g/dL (31.0-37.0); MCV 86.7 fL (80.0-100.0); Mean Platelet Volume 8.8; Monocytes # (A) 0.7 k/uL (0-1.0); Monocytes % (A) 4 %; Neutrophils # (A) 12.7 k/uL (1.3-7.7); Neutrophils % (A) 84 %; Platelet Count 197 k/uL (150-450); RBC 4.17 m/uL (3.80-5.40); RDW 13.7 % (11.5-15.5)
[2020-12-08] MEDS: KETOROLAC 15 MG/ML 1 ML VIAL IVP PRN ×2 (10:50→17:04)
--- NOTE | 2020-12-08 12:46 | P.OP ---
Date of Procedure: 12/07/20 Preoperative Diagnosis: 1. at 40 weeks and 5 days 2. Failure to progress Postoperative Diagnosis: 1. at 40 weeks and 5 days 2. Failure to progress Procedure(s) Performed: Primary low transverse Anesthesia: spinal Surgeon: Nicci [employer] Det[employer] #1: Marcus Finnegan Estimated Blood Loss (ml): 400 IV fluids (ml): 500 Urine output (ml): 200 Pathology: none sent Condition: stable Disposition: floor Indications for Procedure: Patient had 2 separate nights of Cervidil induction and Pitocin augmentation. She was jaimie every few minutes but her cervix made no change. Her cervix remains closed, excised percent effaced, -2 station. Operative Findings: Viable female Apgars 8, 9, weight 7 pounds. Normal uterus, tubes, ovaries. Description of Procedure: Patient was taken to the operating room where spinal anesthesia was found be adequate. She was prepped and draped in normal sterile fashion in dorsal supine position with a leftward tilt. Pfannenstiel skin incision was made the scalpel and carried through to the underlying layer of fascia with the scalpel. Fascia was incised in midline and carried bilaterally with the Mora scissors. The superior aspect of the fascial incision was grasped with [place] clamps elevated and the underlying rectus muscles dissected off with the Mora's. Attention was then turned to inferior aspect of same incision which in a similar fashion was grasped tented up and the underlying rectus muscles dissected off with the Mora's. The rectus muscles were the midline and the peritoneum was identified tented up and entered sharply with the scalpel. The incision was extended superiorly and inferiorly with good visualization of the bladder. The bladder blade was inserted and the vesicouterine peritoneum was incised the Metzen[place]ums then carried bilaterally and bladder flap created digitally. A low transverse incision was then made on the uterus with the scalpel. This was carried bilaterally and digital manner. Infant's head delivered atraumatically, nose and mouth bulb suctioned, cord clamped and cut, handed off to waiting nurses. Apgars 8,9, weight 7 lbs. Placenta delivered manually, intact with three-vessel cord. The uterus is exteriorized and cleared of all clots and debris. The uterine incision was closed with 0 Vicryl in a running locked fas hion. Second layer of the same sutures used in imbricating fashion to obtain excellent hemostasis. Both ovaries and tubes appeared normal. The uterus was placed back into the abdomen. The peritoneum was reapproximated using 2-0 Vicryl in a running fashion. The muscles were reapproximated using 2-0 Vicryl in interrupted fashion. The fascia was reapproximated using 0 Vicryl in a running fashion. The subcutaneous tissues closed with 3-0 Vicryl running fashion. The skin was closed mariel. Patient tolerated the procedure well, sponge and instrument counts were correct times 2 and she was taken to the recovery room in stable condition.
--- NOTE | 2020-12-08 12:47 | P.PNOBGPC ---
Subjective - Subjective Principal diagnosis: Status post primary low transverse postop day #1 Interval history: Patient seen and examined. Denies nausea, vomiting, chest pain, shortness of breath or calf pain. She is passing flatus and tolerating regular diet. Patient reports: Reports appetite normal, Reports pain well controlled, Reports ambulating normally, Denies voiding normally (Has not been able to void yet since the catheter was removed) [place]: doing well Objective - Vital Signs Latest vital signs: Vital Signs Temp Pulse Resp BP Pulse Ox 12/08/20 11:40 98.3 F 73 16 109/69 12/08/20 07:42 98.1 F 68 16 101/62 12/08/20 04:00 97.9 F 55 L 16 106/62 98 12/07/20 23:55 97.7 F 67 16 119/75 97 12/07/20 20:00 98 16 124/63 98 12/07/20 19:30 53 L 16 120/68 96 12/07/20 19:00 60 15 126/72 97 12/07/20 18:45 97.1 F L 56 L 16 114/66 97 12/07/20 18:30 62 16 111/69 99 12/07/20 18:15 76 16 114/71 97 12/07/20 18:00 97.1 F L 81 16 112/59 95 Intake and Output 12/07/20 12/08/20 12/08/20 22:59 06:59 14:59 Intake Total 250 Output Total 100 400 600 Balance -100 -150 -600 Intake: Oral 250 Output: Urine 100 400 600 Uretheral (Briones) 400 600 Other: Voiding Method Indwelling Catheter - Exam Lungs: bilateral: normal Chest: Normal S1, Normal S2 Extremities: Present: normal Abdomen: Present: normal appearance, soft. Absent: distention, tenderness Incision: Present: normal, dry, intact Uterus: Present: normal, firm - Labs Labs: Abnormal Lab Results - Last 24 Hours (Table) 12/08/20 Range/Units 07:41 WBC 15.0 H (3.8-10.6) k/uL Neutrophils # 12.7 H (1.3-7.7) k/uL Assessment and Plan (1) Encounter for induction of labor Current Visit: Yes Status: Resolved Code(s): Z34.90 - ENCNTR FOR SUPRVSN OF NORMAL , UNSP, UNSP TRIMESTER SNOMED Code(s): 843269448 (2) Status post primary low transverse section Current Visit: Yes Status: Acute Code(s): Z98.891 - HISTORY OF UTERINE SCAR FROM PREVIOUS SURGERY SNOMED Code(s): 680944993 Plan: 1. Increase ambulation 2. Pain control 3. Regular diet
[2020-12-08] MEDS: HYDROcodone/APAP 7.5-325MG 1 EACH TAB PO PRN (20:16)
[2020-12-08] MEDS: LACTATED RINGERS 1,000 ML IV SCH (21:50)
[2020-12-09] MEDS: ACETAMINOPHEN TAB 325 MG TAB PO PRN ×2 (00:08→08:08)
--- NOTE | 2020-12-09 04:35 | P.DS ---
Providers Date of admission: 12/05/20 16:10 Expected date of discharge: 12/09/20 Attending physician: Nicci Norht Primary care physician: Stated None - Discharge Diagnosis(es) (1) Encounter for induction of labor Current Visit: Yes Status: Resolved (2) Status post primary low transverse section Current Visit: Yes Status: Acute Hospital Course: Patient presented for induction of labor. She underwent 2 nights of Cervidil induction and 2 days of Pitocin induction. Her cervix remained closed and thick. She underwent a primary low transverse at 40 weeks and 5 days for failure to progress. course uncomplicated. She denies nausea, vomiting, chest pain, shortness breath or any calf pain. Her lochia is decreasing and her pain is controlled. Incision is clean, dry, intact. Patient will be discharged home postoperative day #1 in stable condition to follow-up with me in one week. Plan - Discharge Summary New Discharge Prescriptions: New HYDROcodone/APAP 7.5-325MG [[place] 7.5-325] 1 each PO Q4H PRN #18 tab PRN Reason: Severe Pain No Action Pnv,Calcium 72/Iron/Folic Acid [ Plus Tablet] 1 tab PO DAILY Discharge Medication List Pnv,Calcium 72/Iron/Folic Acid [ Plus Tablet] 1 tab PO DAILY 11/08/20 [History] HYDROcodone/APAP 7.5-325MG [[place] 7.5-325] 1 each PO Q4H PRN #18 tab 12/09/20 [Rx] Follow up Appointment(s)/Referral(s): Nicci North DO [Doctor of Osteopathic Medicine] - 1 Week Discharge Disposition: HOME SELF-CARE
[2020-12-09] MEDS: HYDROcodone/APAP 7.5-325MG 1 EACH TAB PO PRN (04:43)
[2020-12-09 08:00] VITALS: BP 116/75; PULSE 75; RESP 17; TEMP 97.8
[2020-12-09] MEDS: SENNOSIDES-DOCUSATE SODIUM 1 EACH TAB PO SCH (08:07)
== END 2020-12-09 09:50 | disposition home or self-care (01) | DRG 787 ==
LOC: 4FBP 16:10
PROVIDERS: ADMIT Obstetrics & Gynecology; ATTEND Obstetrics & Gynecology
PROC: 3E033VJ Introduction of Other Hormone into Peripheral Vein, Percutaneous Approach (ICD-10-PCS; 2020-12-05)
PROC: 10907ZC Drainage of Amniotic Fluid, Therapeutic from Products of Conception, Via Natural or Artificial Opening (ICD-10-PCS; 2020-12-05)
PROC: 3E0P7VZ Introduction of Hormone into Female Reproductive, Via Natural or Artificial Opening (ICD-10-PCS; 2020-12-05)
PROC: 10D00Z1 Extraction of Products of Conception, Low, Open Approach (ICD-10-PCS; principal; 2020-12-08)
PROC: 3E0334Z Introduction of Serum, Toxoid and Vaccine into Peripheral Vein, Percutaneous Approach (ICD-10-PCS; 2020-12-08)
DX: O62.2 Other uterine inertia (principal); O36.0930 Maternal care for other rhesus isoimmunization, third trimester, not applicable or unspecified; Z37.0 Single live birth; Z3A.40 40 weeks gestation of pregnancy; K58.9 Irritable bowel syndrome, unspecified; Z82.49 Family history of ischemic heart disease and other diseases of the circulatory system; Z83.3 Family history of diabetes mellitus; Z88.6 Allergy status to analgesic agent
CPT/HCPCS: 85025; 85461; 86850; 86900; 86901

== ENCOUNTER → 2022-03-15 | Outpatient (CLI) | payer BC | END | disposition home or self-care (01) | LOC: LABWHC1 15:56 | PROVIDERS: ATTEND Obstetrics & Gynecology | DX: N92.6 Irregular menstruation, unspecified (principal) | CPT/HCPCS: 36415; 84702 ==

== ENCOUNTER 2022-11-21 09:57 | Inpatient (IN) | payer BC ==
[2022-11-17 09:00] VITALS: BMI 35.7
[2022-11-21] MEDS ORDERED: CITRIC ACID-SODIUM CITRATE 15 ML CUP PO ONE (10:18)
[2022-11-21] MEDS ORDERED: LACTATED RINGERS 1,000 ML IV ONE (10:18)
[2022-11-21 10:25] VITALS: RESP 16
[2022-11-21 11:09] LABS: Basophils % (A) 0 %; Eosinophils # (A) 0.1 k/uL (0-0.7); Eosinophils % (A) 1 %; HCT 39.4 % (34.0-46.0); HGB 13.5 gm/dL (11.4-16.0); Lymphocytes # (A) 1.8 k/uL (1.0-4.8); Lymphocytes % (A) 25 %; MCH 29.7 pg (25.0-35.0); MCHC 34.3 g/dL (31.0-37.0); MCV 86.6 fL (80.0-100.0); Monocytes # (A) 0.3 k/uL (0-1.0); Monocytes % (A) 5 %; Neutrophils # (A) 4.9 k/uL (1.3-7.7); Neutrophils % (A) 68 %; Platelet Count 131 k/uL (150-450); RBC 4.55 m/uL (3.80-5.40); RDW 14.5 % (11.5-15.5); WBC 7.1 k/uL (3.8-10.6)
[2022-11-21] MEDS: LACTATED RINGERS 1,000 ML IV SCH ×2 (11:30→14:39)
--- NOTE | 2022-11-21 11:35 | P.HPOB ---
History of Present Illness H&P Date: 11/21/22 Chief Complaint: repeat low transverse 27 year old presents at 40 weeks for repeat low transverse . Review of Systems All systems: negative Constitutional: Denies chills, Denies fever Eyes: denies blurred vision, denies pain Ears, nose, mouth and throat: Denies headache, Denies sore throat Cardiovascular: Denies chest pain, Denies shortness of breath Respiratory: Denies cough Gastrointestinal: Denies abdominal pain, Denies diarrhea, Denies nausea, Denies vomiting Genitourinary: Denies dysuria, Denies hematuria Musculoskeletal: Denies myalgias Integumentary: Denies pruritus, Denies rash Neurological: Denies numbness, Denies weakness Psychiatric: Denies anxiety, Denies depression Endocrine: Denies fatigue, Denies weight change Past Medical History Past Medical History: No Reported History Additional Past Medical History / Comment(s): IRRITABLE BOWEL DISEASE, rhabdomyolosis, hx heart murmur, resolved now. 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 Past Anesthesia/Blood Transfusion Reactions: No Reported Reaction Additional Past Anesthesia/Blood Transfusion Reaction / Comment(s): With oral surgery was shaky coming out of anesthesia. Past Psychological History: No Psychological Hx Reported Smoking Status: Never smoker Past Alcohol Use History: None Reported Past Drug Use History: None Reported - Past Family History Father Family Medical History: Diabetes Mellitus, Myocardial Infarction ([place]) Brother(s) Family Medical History: Diabetes Mellitus Medications and Allergies Home Medications Medication Instructions Recorded Confirmed Type Vit No.180/Iron/Folic 1 tab PO DAILY 11/08/20 11/17/22 History [ Plus Tablet] Calcium Carbonate [Tums] 500 mg PO TID 11/21/22 11/21/22 History Allergies Allergy/AdvReac Type Severity Reaction Status Date / Time ibuprofen AdvReac Nausea & Verified 11/17/22 08:51 Vomiting & Diarrhea Exam Osteopathic Statement: *. No significant issues noted on an osteopathic structural exam other than those noted in the History and Physical/Consult. Vital Signs Temp Pulse Resp BP Pulse Ox 11/21/22 10:21 97.9 F 99 16 120/68 97 Intake and Output 11/20/22 11/21/22 11/21/22 22:59 06:59 14:59 Other: Weight 106.594 kg Heart: Regular rate and rhythm Lungs: Clear to auscultation bilaterally Abdomen: Soft, nontender Extremities: Negative Homans sign Results Result Diagrams: 11/21/22 10:32 Abnormal Lab Results - Last 24 Hours (Table) 11/21/22 Range/Units 10:32 Plt Count 131 L (150-450) k/uL Assessment and Plan (1) Previous section Current Visit: Yes Status: Acute Code(s): Z98.891 - HISTORY OF UTERINE SCAR FROM PREVIOUS SURGERY SNOMED Code(s): 121395347 Plan: 1. repeat low transverse
[2022-11-21] MEDS ORDERED: KETOROLAC 30 MG/ML 1 ML VIAL ONE (11:49)
[2022-11-21] MEDS ORDERED: NALBUPHINE 10 MG/ML (1 ML AMP) ONE (11:49)
[2022-11-21] MEDS ORDERED: GLYCOPYRROLATE 0.2 MG/ML 2 ML VIAL ONE (11:49)
[2022-11-21] MEDS ORDERED: MORPHINE SULFATE (PF) 0.3 MG/0.3 ML SYR ONE (11:49)
[2022-11-21] MEDS ORDERED: ATROPINE SULFATE 0.1 MG/ML 10ML SYRINGE ONE (11:49)
[2022-11-21] MEDS ORDERED: PROPOFOL 10 MG/ML 20 ML VIAL IV ONE (11:49)
[2022-11-21] MEDS ORDERED: fentaNYL (PF) 50 MCG/ML 2 ML AMP ONE (11:49)
[2022-11-21] MEDS ORDERED: ONDANSETRON 4 MG/2 ML VIAL ONE (11:49)
[2022-11-21] MEDS ORDERED: OXYTOCIN 30 UNITS/500 ML NS BAG IV ONE (11:49)
[2022-11-21] MEDS ORDERED: ZOLPIDEM 5 MG TAB PO PRN (12:29)
[2022-11-21] MEDS ORDERED: diphenhydrAMINE 50 MG/ML 1 ML VIAL IVP PRN ×2 (12:29)
[2022-11-21] MEDS ORDERED: SIMETHICONE 80 MG CHEWABLE PO PRN (12:29)
[2022-11-21] MEDS ORDERED: diphenhydrAMINE 25 MG CAP PO PRN (12:29)
[2022-11-21] MEDS ORDERED: diphenhydrAMINE 50 MG CAP PO PRN (12:29)
[2022-11-21] MEDS ORDERED: NALOXONE 0.4 MG/ML 1 ML VIAL IV PRN (12:29)
[2022-11-21] MEDS ORDERED: LANOLIN CREAM 5 GM TUBE TOPICAL PRN (12:29)
[2022-11-21] MEDS ORDERED: ONDANSETRON 4 MG/2 ML VIAL IVP PRN (12:29)
[2022-11-21] MEDS ORDERED: OXYTOCIN 30 UNITS/500 ML NS 30 UNIT in SALINE 1 500ML.BAG IV SCH (12:30)
[2022-11-21] MEDS: ACETAMINOPHEN TAB 500 MG TAB PO SCH (16:25)
[2022-11-21] MEDS: METOCLOPRAMIDE 5 MG/ML 2 ML VIAL IVP PRN (18:32)
[2022-11-21] MEDS: KETOROLAC 15 MG/ML 1 ML VIAL IVP SCH (20:36)
[2022-11-21] MEDS: SENNOSIDES-DOCUSATE SODIUM 1 EACH TAB PO SCH (22:03)
[2022-11-21] MEDS ORDERED: Rhogam IMMUNE GLOBULIN 1,500 UNIT/1 ML IM ONE (22:04)
[2022-11-22] MEDS: ACETAMINOPHEN TAB 500 MG TAB PO SCH ×5 (02:00→21:53)
[2022-11-22] MEDS: LACTATED RINGERS 1,000 ML IV SCH ×4 (02:03→18:38)
[2022-11-22] MEDS: KETOROLAC 15 MG/ML 1 ML VIAL IVP SCH ×3 (04:37→18:11)
[2022-11-22] MEDS: METOCLOPRAMIDE 5 MG/ML 2 ML VIAL IVP PRN (04:38)
[2022-11-22 07:00] LABS: Basophils % (A) 0 %; Eosinophils % (A) 0 %; HCT 34.2 % (34.0-46.0); HGB 11.1 gm/dL (11.4-16.0); Lymphocytes # (A) 1.5 k/uL (1.0-4.8); Lymphocytes % (A) 12 %; MCH 28.8 pg (25.0-35.0); MCHC 32.5 g/dL (31.0-37.0); MCV 88.7 fL (80.0-100.0); Monocytes # (A) 0.5 k/uL (0-1.0); Monocytes % (A) 4 %; Neutrophils # (A) 10.2 k/uL (1.3-7.7); Neutrophils % (A) 83 %; Platelet Count 137 k/uL (150-450); RBC 3.86 m/uL (3.80-5.40); RDW 14.6 % (11.5-15.5); WBC 12.3 k/uL (3.8-10.6)
[2022-11-22] MEDS: SENNOSIDES-DOCUSATE SODIUM 1 EACH TAB PO SCH ×2 (07:44→19:38)
--- NOTE | 2022-11-22 08:32 | P.PN ---
Progress Note - Text Progress Note Date: 11/22/22 Postop day 1 from under spinal anesthesia with intrathecal morphine given for postop pain management. Patient is doing well. Pain is well controlled. On visual analog scale 2/10 Mild itching present No nausea or vomiting reported. No Headache or weakness and numbness in the legs. No complications from spinal anesthesia.
--- NOTE | 2022-11-22 08:43 | P.PNOBGPC ---
Subjective - Subjective Principal diagnosis: Status post repeat low transverse postop day 1 Interval history: Patient seen and examined. Denies nausea, vomiting, chest pain, shortness of breath or calf pain. Patient reports: Reports appetite normal, Reports voiding normally, Reports pain well controlled, Reports ambulating normally : doing well Objective - Vital Signs Latest vital signs: Vital Signs Temp Pulse Resp BP Pulse Ox 11/22/22 04:00 97.3 F L 71 16 115/59 96 11/22/22 00:00 97.3 F L 75 16 115/73 99 11/21/22 20:00 97.4 F L 62 16 130/81 100 11/21/22 16:00 97.1 F L 79 16 130/73 97 11/21/22 14:29 96.7 F L 78 16 124/68 99 11/21/22 13:58 83 16 120/70 100 11/21/22 13:28 86 16 128/74 99 11/21/22 13:13 100 16 124/73 99 11/21/22 12:58 92 16 138/70 99 11/21/22 12:48 100 16 130/70 96 11/21/22 12:28 97.0 F L 100 16 126/60 97 11/21/22 10:21 97.9 F 99 16 120/68 97 Intake and Output 11/21/22 11/22/22 11/22/22 22:59 06:59 14:59 Intake Total 120 Output Total 862 150 Balance -742 -150 Intake: Oral 120 Output: Urine 500 150 Uretheral (Briones) 200 Output, Quantitative 362 Blood Loss Other: # Voids 1 - Exam Lungs: bilateral: normal Chest: Normal S1, Normal S2 Extremities: Present: normal Abdomen: Present: normal appearance, soft. Absent: distention, tenderness Incision: Present: normal, dry, intact Uterus: Present: normal, firm - Labs Labs: Abnormal Lab Results - Last 24 Hours (Table) 11/21/22 11/22/22 Range/Units 10:32 06:26 WBC 12.3 H (3.8-10.6) k/uL Hgb 11.1 L (11.4-16.0) gm/dL Plt Count 131 L 137 L (150-450) k/uL Neutrophils # 10.2 H (1.3-7.7) k/uL Assessment and Plan (1) Previous section Current Visit: Yes Status: Resolved Code(s): Z98.891 - HISTORY OF UTERINE SCAR FROM PREVIOUS SURGERY SNOMED Code(s): 085905180 (2) Status post repeat low transverse section Current Visit: Yes Status: Acute Code(s): Z98.891 - HISTORY OF UTERINE SCAR FROM PREVIOUS SURGERY SNOMED Code(s): 611297809 Plan: 1. Increase ambulation 2.. Pain medication
--- NOTE | 2022-11-22 08:45 | P.OP ---
Date of Procedure: 11/21/22 Preoperative Diagnosis: 1. at 40 weeks 2. Previous Postoperative Diagnosis: Same Procedure(s) Performed: Repeat low transverse Anesthesia: spinal Surgeon: Nicci North Striper #1: Scott Stewart Estimated Blood Loss (ml): 750 IV fluids (ml): 500 Urine output (ml): 100 Pathology: none sent Condition: stable Disposition: floor Operative Findings: Viable male, Apgars 8, 9, weight 7 lbs. 8 oz. Normal uterus, tubes, ovaries. Description of Procedure: Patient was taken to the operating room where spinal anesthesia was found be adequate. She was prepped and draped in normal sterile fashion in dorsal supine position with a leftward tilt. Pfannenstiel skin incision was made the scalpel and carried through to the underlying layer of fascia with the scalpel. Fascia was incised in midline and carried bilaterally with the Mora scissors. The superior aspect of the fascial incision was grasped with Jbphh clamps elevated and the underlying rectus muscles dissected off with the Mora's. Attention was then turned to inferior aspect of same incision which in a similar fashion was grasped tented up and the underlying rectus muscles dissected off with the Mora's. The rectus muscles were the midline and the peritoneum was identified tented up and entered sharply with the scalpel. The incision was extended superiorly and inferiorly with good visualization of the bladder. The bladder blade was inserted and the vesicouterine peritoneum was incised the Metzenbaums then carried bilaterally and bladder flap created digitally. A low transverse incision was then made on the uterus with the scalpel. This was carried bilaterally and digital manner. 's head delivered atraumatically, nose and mouth bulb suctioned, cord clamped and cut, handed off to waiting nurses. Apgars 8,9, weight 7 lbs. 8 oz. Placenta delivered manually, intact with three-vessel cord. The uterus is exteriorized and cleared of all clots and debris. The uterine incision was closed with 0 Vicryl in a running locked fashion. Second layer of the same sutures used in imbricating fashion to obtain excellent hemostasis. Bladder flap was then reapproximated using 2-0 Vicryl in a running fashion. Both ovaries and tubes appeared normal. The uterus was placed back into the abdomen. The peritoneum was reapproximated using 2-0 Vicryl in a running fashion. The muscles were reapproximated using 2- 0 Vicryl in interrupted fashion. The fascia was reapproximated using 0 Vicryl in a running fashion. The subcutaneous tissues closed with 3-0 Vicryl running fashion. The skin was closed mariel. Patient tolerated the procedure well, sponge and instrument counts were correct times 2 and she was taken to the recovery room in stable condition.
[2022-11-23] MEDS: KETOROLAC 15 MG/ML 1 ML VIAL IVP SCH (00:39)
[2022-11-23] MEDS: ACETAMINOPHEN TAB 500 MG TAB PO SCH ×2 (03:50→12:23)
[2022-11-23 08:17] VITALS: BP 129/83; PULSE 77; TEMP 98.4
[2022-11-23] MEDS: SENNOSIDES-DOCUSATE SODIUM 1 EACH TAB PO SCH (08:24)
--- NOTE | 2022-11-23 09:51 | P.DS ---
Providers Date of admission: 11/21/22 09:57 Expected date of discharge: 11/23/22 Attending physician: Nicci Notrh Primary care physician: Stated None - Discharge Diagnosis(es) (1) Previous section Current Visit: Yes Status: Resolved (2) Status post repeat low transverse section Current Visit: Yes Status: Acute Hospital Course: She presented for repeat low transverse . She underwent this procedure without complication. She denies nausea, vomiting, chest pain, shortness of breath or calf pain. Patient will be discharged home post day #2 in stable condition to follow-up with me in one week. Plan - Discharge Summary Discharge Rx Participant: Yes New Discharge Prescriptions: New oxyCODONE HCL [OxyIR] 5 mg PO Q4HR PRN #18 tab PRN Reason: Pain Scale 4 - 6 Acetaminophen Tab [Tylenol] 1,000 mg PO Q6H #60 tab No Action Vit No.180/Iron/Folic [ Plus Tablet] 1 tab PO DAILY Calcium Carbonate [Tums] 500 mg PO TID Discharge Medication List Vit No.180/Iron/Folic [ Plus Tablet] 1 tab PO DAILY 11/08/20 [History] Calcium Carbonate [Tums] 500 mg PO TID 11/21/22 [History] Acetaminophen Tab [Tylenol] 1,000 mg PO Q6H #60 tab 11/23/22 [Rx] oxyCODONE HCL [OxyIR] 5 mg PO Q4HR PRN #18 tab 11/23/22 [Rx] Follow up Appointment(s)/Referral(s): Nicci North DO [Doctor of Osteopathic Medicine] - 1 Week Discharge Disposition: HOME SELF-CARE
== END 2022-11-23 13:18 | disposition home or self-care (01) | DRG 788 ==
LOC: 4FBP 09:57
PROVIDERS: ADMIT Obstetrics & Gynecology; ATTEND Obstetrics & Gynecology
PROC: 3E0334Z Introduction of Serum, Toxoid and Vaccine into Peripheral Vein, Percutaneous Approach (ICD-10-PCS; principal; 2022-11-21 11:49)
PROC: 10D00Z1 Extraction of Products of Conception, Low, Open Approach (ICD-10-PCS; principal; 2022-11-21 11:49)
DX: O34.211 Maternal care for low transverse scar from previous cesarean delivery (principal); Z37.0 Single live birth; Z3A.40 40 weeks gestation of pregnancy; Z28.311 Partially vaccinated for COVID-19; Z29.13 Encounter for prophylactic Rho(D) immune globulin; Z88.6 Allergy status to analgesic agent; Z28.21 Immunization not carried out because of patient refusal
CPT/HCPCS: 85025; 85461; 86850; 86870; 86880; 86900; 86901

== ENCOUNTER 2024-10-02 19:23 | Emergency (ER) | payer BC ==
[2024-10-02 19:28] VITALS: RESP 18; TEMP 98.7
[2024-10-02] MEDS: SODIUM CHLORIDE 0.9% 1,000 ML IV STA (19:58)
[2024-10-02] MEDS: PROCHLORPERAZINE INJ 10 MG/2 ML VIAL IVP STA (20:02)
[2024-10-02] MEDS: DEXAMETHASONE SOD PHOSPHATE 10 MG/ML 1 ML VIAL IVP STA (20:03)
[2024-10-02] MEDS: KETOROLAC 15 MG/ML 1 ML VIAL IVP STA (20:03)
[2024-10-02] MEDS: diphenhydrAMINE 50 MG/ML 1 ML VIAL IVP STA (20:03)
[2024-10-02 20:08] LABS: Basophils % (A) 0 %; Eosinophils # (A) 0.1 k/uL (0-0.7); Eosinophils % (A) 1 %; HGB 13.7 gm/dL (11.4-16.0); Lymphocytes # (A) 1.1 k/uL (1.0-4.8); Lymphocytes % (A) 17 %; MCH 28.3 pg (25.0-35.0); MCHC 32.6 g/dL (31.0-37.0); MCV 86.7 fL (80.0-100.0); Mean Platelet Volume 7.5; Monocytes # (A) 0.3 k/uL (0-1.0); Monocytes % (A) 4 %; Neutrophils # (A) 4.9 k/uL (1.3-7.7); Neutrophils % (A) 76 %; Platelet Count 203 k/uL (150-450); RBC 4.84 m/uL (3.80-5.40); RDW 13.7 % (11.5-15.5); WBC 6.4 k/uL (3.8-10.6)
[2024-10-02 20:17] LABS: INR 0.9 (<1.2); Partial Thromboplastin Time 26.7 sec (22.0-30.0); Prothrombin Time 10.5 sec (10.0-12.5)
[2024-10-02 20:25] LABS: ALT 64 U/L (4-34); AST 60 U/L (14-36); African American GFR (CKD) >90 (>60 ml/min/1.73 sqM); Alkaline Phosphatase 112 U/L (38-126); Anion Gap 10 mmol/L; Blood Urea Nitrogen 14 mg/dL (7-17); Calcium 9.1 mg/dL (8.4-10.2); Carbon Dioxide 26 mmol/L (22-30); Chloride 103 mmol/L (98-107); Glucose 86 mg/dL (74-99); Magnesium 1.8 mg/dL (1.6-2.3); Non-African American GFR(CKD) >90 (>60 ml/min/1.73 sqM); Sodium 139 mmol/L (137-145); Total Protein 8.7 g/dL (6.3-8.2)
[2024-10-02 20:33] LABS: Potassium 4.3 mmol/L (3.5-5.1)
[2024-10-02 20:41] LABS: HCG,Quantitative Serum <2.4 mIU/mL
--- NOTE | 2024-10-02 20:49 | ED ---
Headache HPI - General Chief Complaint: Recheck/Abnormal Lab/Rx Stated Complaint: miscarriage, [place] Time Seen by Provider: 10/02/24 19:29 Source: patient, RN notes reviewed Mode of arrival: ambulatory Limitations: no limitations - History of Present Illness Initial Comments: This is a 28-year-old female who presents to the emergency department for headaches, nausea, and vomiting. Patient states that she had a miscarriage 3 days ago, this is her fifth miscarriage. She was about 4 weeks along at the time. She was having cramping for the first couple of days, however this has since started to improve. She does still have some minor residual bleeding. However, her concern is that when she woke up this morning she had a severe headache. States that this might be the worst headache of her life. She tried taking Tylenol without any relief in symptoms. She also had associated nausea and vomiting and felt weak. MD Complaint: headache - Related Data Home Medications Medication Instructions Recorded Confirmed Vit No.180/Iron/Folic 1 tab PO DAILY 11/08/20 11/17/22 [ Plus Tablet] Calcium Carbonate [Tums] 500 mg PO TID 11/21/22 11/21/22 Previous Rx's Medication Instructions Recorded Acetaminophen Tab [Tylenol] 1,000 mg PO Q6H #60 tab 11/23/22 oxyCODONE HCL [OxyIR] 5 mg PO Q4HR PRN #18 tab 11/23/22 Ketorolac [Toradol] 10 mg PO Q6HR PRN #15 tab 10/02/24 Ondansetron Odt [Zofran Odt] 4 mg PO Q8HR PRN #15 tab 10/02/24 Allergies Allergy/AdvReac Type Severity Reaction Status Date / Time ibuprofen AdvReac Nausea & Verified 10/02/24 19:28 Vomiting & Diarrhea Review of Systems ROS Statement: Those systems with pertinent positive or pertinent negative responses have been documented in the HPI. ROS Other: All systems not noted in ROS Statement are negative. Past Medical History Past Medical History: No Reported History Additional Past Medical History / Comment(s): IRRITABLE BOWEL DISEASE, rhabdomyolosis, hx heart murmur, resolved now. 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 Past Anesthesia/Blood Transfusion Reactions: No Reported Reaction Additional Past Anesthesia/Blood Transfusion Reaction / Comment(s): With oral surgery was shaky coming out of anesthesia. Past Psychological History: No Psychological Hx Reported Smoking Status: Never smoker Past Alcohol Use History: None Reported Past Drug Use History: None Reported - Past Family History Father Family Medical History: Diabetes Mellitus, Myocardial Infarction ([place]) Brother(s) Family Medical History: Diabetes Mellitus General Exam Limitations: no limitations General appearance: alert, in no apparent distress Head exam: Present: atraumatic, normocephalic, normal inspection Eye exam: Present: normal appearance, PERRL, EOMI. Absent: scleral icterus, conjunctival injection, periorbital swelling Respiratory exam: Present: normal lung sounds bilaterally. Absent: respiratory distress, wheezes, rales, rhonchi, stridor Cardiovascular Exam: Present: regular rate, normal rhythm, normal heart sounds. Absent: systolic murmur, diastolic murmur, rubs, gallop, clicks Neurological exam: Present: alert, oriented X3, CN II-XII intact Expanded Cerebellar function: Finger to Nose: Normal, Heel to Brand: Normal, Romberg: Normal Motor strength exam: RUE: 5, LUE: 5, RLE: 5, LLE: 5 Psychiatric exam: Present: normal affect, normal mood Skin exam: Present: warm, dry, intact, normal color. Absent: rash Course Vital Signs 10/02/24 10/02/24 19:26 21:54 Temperature 98.7 F Pulse Rate 97 78 Respiratory 18 18 Rate Blood Pressure 111/70 98/64 O2 Sat by Pulse 100 98 Oximetry Medical Decision Making - Medical Decision Making This is a 28 year old female who presents to the emergency department for a headache. Was pt. sent in by a medical professional or institution? @ -No Did you speak to anyone other than the patient for history? @ -No Did you review nursing and triage notes? @ -Yes, and I agree, it is accurate with regards to the patient's symptoms. Were old charts reviewed? @ -No Differential Diagnosis? @ -Differential Headache: Migraine, tension, cluster, carbon monoxide, central venous thrombosis, pension karma temporal arteritis, acute closure glaucoma, intercranial hemorrhage, mastoiditis, sinusitis, head injury, this is not meant to be an all-inclusive list. EKG interpreted by me (3pts min.)? @ -Not obtained X-rays interpreted by me (1pt min.)? @ -Not obtained CT interpreted by me (1pt min.)? @ -CT scan of the brain obtained. My interpretation identifies no evidence of an acute intracranial hemorrhage. CTA of the head and neck obtained. My inte rpretation identifies no evidence of an aneurysm. U/S interpreted by me (1pt. min.)? @ -Not obtained What testing was considered but not performed? (CT, X-rays, U/S, labs)? Why? @ -None What meds were considered but not given? Why? @ -None Did you discuss the management of the patient with other professionals? @ -No Did you reconcile home meds? @ -No Was smoking cessation discussed for >3mins.? @ -No Was critical care preformed (if so, how long)? @ -No Were there social determinants of health that impacted care today? How? (Homelessness, low income, unemployed, alcoholism, drug addiction, transport ation, low edu. Level, literacy, decrease access to med. care, group home, rehab)? @ -No Was there de-escalation of care discussed even if they declined? (Discuss DNR or withdrawal of care, Hospice)? @ -No What co-morbidities impacted this encounter? (DM, HTN, Smoking, COPD, CAD, Cancer, CVA, Hep., AIDS, mental health diagnosis, sleep apnea, morbid obesity)? @ -None Was patient admitted / discharged? @ -Discharged. Lab work unremarkable. Beta-hCG is undetectable. Given her concern with the severity of the headache, CT scan of the brain and CTA of the head and neck obtained revealing no acute intracranial process. She was treated with a migraine cocktail consisting of IV fluids, Toradol, Decadron, Compazine, and Benadryl. She essentially had resolution of symptoms afterwards. Discussed that the headache could have been triggered by the change in hormones from the miscarriage. Toradol and Zofran prescribed for further symptomatic management. Advised follow-up with her PCP and [facility] for reevaluation. Patient discharged home in stable condition. Case discussed with ED attending Dr. Armstrong. Return precautions reviewed in depth, the patient is instructed to return to the emergency department with any new, worsening, or concerning symptoms. Patient verbalized understanding. Undiagnosed new problem with uncertain prognosis? @ -None Drug Therapy requiring intensive monitoring for toxicity (Heparin, Nitro, Insulin, Cardizem)? @ -None Were any procedures done? @ -None Diagnosis/symptom? @ -Headache, nausea and vomiting Acute, or Chronic, or Acute on Chronic? @ -Acute Uncomplicated (without systemic symptoms) or Complicated (systemic symptoms)? @ -Uncomplicated Side effects of treatment? @ -None Exacerbation, Progression, or Severe Exacerbation] @ -Not applicable Poses a threat to life or bodily function? @ -No - Lab Data Result diagrams: 10/02/24 19:58 10/02/24 19:58 Lab Results 10/02/24 10/02/24 10/02/24 Range/Units 19:58 19:58 19:58 WBC 6.4 (3.8-10.6) k/uL RBC 4.84 (3.80-5.40) m/uL Hgb 13.7 (11.4-16.0) gm/dL Hct 42.0 (34.0-46.0) % MCV 86.7 (80.0-100.0) fL MCH 28.3 (25.0-35.0) pg MCHC 32.6 (31.0-37.0) g/dL RDW 13.7 (11.5-15.5) % Plt Count 203 (150-450) k/uL MPV 7.5 Neutrophils % 76 % Lymphocytes % 17 % Monocytes % 4 % Eosinophils % 1 % Basophils % 0 % Neutrophils # 4.9 (1.3-7.7) k/uL Lymphocytes # 1.1 (1.0-4.8) k/uL Monocytes # 0.3 (0-1.0) k/uL Eosinophils # 0.1 (0-0.7) k/uL Basophils # 0.0 (0-0.2) k/uL PT 10.5 (10.0-12.5) sec INR 0.9 (<1.2) APTT 26.7 (22.0-30.0) sec Sodium 139 (137-145) mmol/L Potassium 4.3 (3.5-5.1) mmol/L Chloride 103 (98-107) mmol/L Carbon Dioxide 26 (22-30) mmol/L Anion Gap 10 mmol/L BUN 14 (7-17) mg/dL Creatinine 0.64 (0.52-1.04) mg/dL Est GFR (CKD-EPI)AfAm >90 (>60 ml/min/1.73 sqM) Est GFR (CKD-EPI)NonAf >90 (>60 ml/min/1.73 sqM) Glucose 86 (74-99) mg/dL Plasma Lactic Acid Shiva (0.7-2.0) mmol/L Calcium 9.1 (8.4-10.2) mg/dL Magnesium 1.8 (1.6-2.3) mg/dL Total Bilirubin 1.0 (0.2-1.3) mg/dL AST 60 H (14-36) U/L ALT 64 H (4-34) U/L Alkaline Phosphatase 112 (38-126) U/L Total Protein 8.7 H (6.3-8.2) g/dL Albumin 5.0 (3.5-5.0) g/dL HCG, Quant <2.4 mIU/mL 10/02/24 Range/Units 19:58 WBC (3.8-10.6) k/uL RBC (3.80-5.40) m/uL Hgb (11.4-16.0) gm/dL Hct (34.0-46.0) % MCV (80.0-100.0) fL MCH (25.0-35.0) pg MCHC (31.0-37.0) g/dL RDW (11.5-15.5) % Plt Count (150-450) k/uL MPV Neutrophils % % Lymphocytes % % Monocytes % % Eosinophils % % Basophils % % Neutrophils # (1.3-7.7) k/uL Lymphocytes # (1.0-4.8) k/uL Monocytes # (0-1.0) k/uL Eosinophils # (0-0.7) k/uL Basophils # (0-0.2) k/uL PT (10.0-12.5) sec INR (<1.2) APTT (22.0-30.0) sec Sodium (137-145) mmol/L Potassium (3.5-5.1) mmol/L Chloride (98-107) mmol/L Carbon Dioxide (22-30) mmol/L Anion Gap mmol/L BUN (7-17) mg/dL Creatinine (0.52-1.04) mg/dL Est GFR (CKD-EPI)AfAm (>60 ml/min/1.73 sqM) Est GFR (CKD-EPI)NonAf (>60 ml/min/1.73 sqM) Glucose (74-99) mg/dL Plasma Lactic Acid Shiva 1.4 (0.7-2.0) mmol/L Calcium (8.4-10.2) mg/dL Magnesium (1.6-2.3) mg/dL Total Bilirubin (0.2-1.3) mg/dL AST (14-36) U/L ALT (4-34) U/L Alkaline Phosphatase (38-126) U/L Total Protein (6.3-8.2) g/dL Albumin (3.5-5.0) g/dL HCG, Quant mIU/mL - Radiology Data Radiology results: report reviewed, image reviewed Disposition Clinical Impression: Headache, Nausea & vomiting Disposition: HOME SELF-CARE Instructions (If sedation given, give patient instructions): Acute Headache (ED) Additional Instructions: Return to the emergency department with any new, worsening, or concerning symptoms. Take the Toradol with Tylenol as needed for pain relief. If you choose to take the Toradol, do not take any other anti-inflammatories such as ibuprofen, take one or the other. Take the Zofran up to every 8 hours as needed for nausea and vomiting. Follow up with your primary care provider in 1-2 days. Prescriptions: Ketorolac [Toradol] 10 mg PO Q6HR PRN #15 tab PRN Reason: Pain Ondansetron Odt [Zofran Odt] 4 mg PO Q8HR PRN #15 tab PRN Reason: Nausea And Vomiting Is patient prescribed a controlled substance at d/c from ED?: No Referrals: Francisco Hoffman MD [Primary Care Provider] - 1-2 days Time of Disposition: 21:39
--- NOTE | 2024-10-02 20:57 | CT ---
EXAMINATION TYPE: CT brain wo con CT DLP: 1143 mGycm, Automated exposure control for dose reduction was used. DATE OF EXAM: 10/02/2024 8:34 PM COMPARISON: None. CLINICAL INDICATION:Female, 28 years old with history of Worst headache of life, Worst headache of li fe. N/V. Miscarriage x3days ago. TECHNIQUE: Brain: Axial CT images of the brain were obtained with coronal and sagittal reformats created and rev iewed. Contrast used: None. Oral contrast used: None. FINDINGS: Brain: Extra-axial spaces: Small round hypoattenuated focus adjacent to the left-sided midbrain likely repre sents a small perivascular space. No other abnormal extra-axial fluid collections. Ventricular system: Within normal limits Cerebral parenchyma: No acute intraparenchymal hemorrhage or mass effect. The mayer-white junction is well differentiated. Cerebellum: Unremarkable. Mass effect: No evidence of midline shift. Intracranial vasculature: unremarkable Soft tissues: Normal. Calvarium/osseous structures: No depressed skull fracture. Paranasal sinuses and mastoid air cells: Mild bilateral maxillary sinus mucosal thickening. Visualized orbits: Orbital contents are intact. IMPRESSION: 1. No acute intracranial process. 2. Mild maxillary sinusitis [facility], , 10/02/2024 8:54 PM
--- NOTE | 2024-10-02 21:18 | CT ---
EXAMINATION TYPE: CT angio head neck CT DLP: 657.8 mGycm, Automated exposure control for dose reduction was used. DATE OF EXAM: 10/02/2024 8:44 PM COMPARISON: CT head from the same day. CLINICAL INDICATION:Female, 28 years old with history of Worst headache of life; PHH, Worst headache of life. N/V. Miscarriage x3days ago. TECHNIQUE: Axially acquired helical CT angiogram of the head and neck was obtained with contrast. Axi al images are supplemented with 3D reconstructions and MIP images which were post-processed at an in dependent workstation. NASCET criteria used. Contrast used:65 ml mL of Isovue 370 with IV Contrast, Oral contrast used: None. FINDINGS: CTA HEAD: No evidence of acute intracranial hemorrhage, mass effect, or midline shift. The ventricles, sulci, a nd cisterns are unremarkable. The visualized portions of the internal carotid arteries, middle cerebral arteries, anterior cerebral arteries, and posterior cerebral arteries are patent. The basilar and vertebral arteries are patent. CTA NECK: Right Carotid System: The common carotid artery and external carotid artery are patent. The carotid bifurcation demonstrate s no evidence of hemodynamically significant stenosis. The remaining portions of the internal carotid artery demonstrate normal size without significant narrowing. Left Carotid System: The common carotid artery and external carotid artery are patent. The carotid bifurcation demonstrate s no evidence of hemodynamically significant stenosis. The remaining portions of the internal carotid artery demonstrate normal size without significant narrowing. Vertebral arteries are patent without evidence hemodynamically significant stenosis. There is a three-vessel aortic arch. The origins of the great vessels are patent. No evidence of hemo dynamically significant stenosis. Upper thorax: Scattered atelectasis in the bilateral visualized lungs. IMPRESSION: 1. No evidence of dissection of the cervical internal carotid arteries or vertebral arteries or any e vidence of significant stenosis at the carotid bifurcations. 2. No evidence of intracranial high-grade stenosis or intracranial aneurysm. [facility], , 10/02/2024 9:16 PM
[2024-10-02] MEDS: ONDANSETRON 4 MG ODT STARTER PACK 2 TAB BTL PO STA (21:51)
[2024-10-02 21:55] VITALS: BP 98/64; PULSE 78
== END 2024-10-02 21:55 | disposition home or self-care (01) ==
LOC: EC 19:23
DX: R51.9 Headache, unspecified (principal); R11.2 Nausea with vomiting, unspecified; Z88.6 Allergy status to analgesic agent
CPT/HCPCS: 36415; 80053; 83605; 83735; 85025; 85610; 85730; 84702; 70496; 70450; 70498; 99284; 96374; 96375 ×2; 96361; J1200; J0780; J1100; J1885; S0119; Q9967